=== PATIENT | female | born 1945 | race Caucasian/White ===

== ENCOUNTER 2020-08-18 12:18 | Emergency (ER) | payer MEDICARE, SELFPAY ==
[2020-08-18 12:29] VITALS: BP 114/70; PULSE 69; RESP 16; TEMP 36.6; O2SAT 100
--- NOTE | 2020-08-18 12:43 | ED.GENADULT ---
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 Patient unsure when her last tetanus shot was. Patient states she is on Eliquis and was having a hard time getting the bleeding to stop which is why she showed up here today. Patient did attempt to Steri-Strip it but states it continued to bleed. Related Data Allergies Allergy/AdvReac Type Severity Reaction Status Date / Time erythromycin base AdvReac Mild Nausea Verified 08/18/20 12:42 Sulfa (Sulfonamide AdvReac Mild Nausea Verified 08/18/20 12:41 Antibiotics) Mold (Blue) Cheese Allergy Mild Other Uncoded 08/18/20 12:42 Review of Systems Review of Systems: Narrative: CONSTITUTIONAL: Denies fever, chills, or sweats. EYES: Denies visual changes, redness, or discharge. ENT: Denies rhinorrhea, congestion, sore throat, or otalgia. CARDIOVASCULAR: Denies chest pain, palpitations, or edema. RESPIRATORY: Denies cough or dyspnea. GASTROINTESTINAL: Denies abdominal pain, nausea, vomiting, or diarrhea. GENITOURINARY: Denies dysuria or hematuria. SKIN: Denies rash or itching. Positive wound left lower leg after bumping the raimann machine operator. MUSCULOSKELETAL: Denies back pain, joint pain, or myalgia. NEUROLOGIC: Denies headache, numbness, or weakness. PSYCHIATRIC: Denies anxiety or depression. [facility] Past Medical History Medical History (Updated 08/18/20 @ 12:59 by LINA Rivera) Arthritis Asthma Cardiac disorder Leaky mitral valve Congestive heart failure Hypercholesterolemia Hypertension Scoliosis Tachycardia Surgical History Surgical History (Updated 08/18/20 @ 12:45 by LINA Rivera) H/O: hysterectomy History of appendectomy Social History Social History (Updated 08/18/20 @ 12:45 by LINA Rivera) Smoking status: Current every day smoker Comments At the time of my signature I agree with nursing past medical history, surgical, social, and family history. There is no relevant family history pertinent to the presenting complaint. Exam Narrative: Exam Narrative: GENERAL: Well-appearing, well-nourished, and in no acute distress. HEAD: Normocephalic, atraumatic. EYES: PERRLA and EOMI. ENT: Nares clear, no rhinorrhea or epistaxis. Mucous membranes moist. NECK: Supple. No lymphadenopathy CHEST: Clear to auscultation. No respiratory distress. HEART: Regular rate and rhythm. No murmur heard. Normal peripheral pulses. ABDOMEN: Soft, nontender, nondistended, normal active bowel sounds. EXTREMITIES: Normal range of motion. No edema. SKIN: Warm, dry, no rash. Patient has approximately 4 x 3 cm skin tear noted to the anterior left lower extremity. There is no active bleeding at this time. NEURO: No focal deficits. Alert and oriented x3. Course Vital Signs Vital signs: Vital Signs Temperature 36.6 C 08/18/20 12:29 Pulse Rate 69 08/18/20 12:29 Respiratory Rate 16 08/18/20 12:29 Blood Pressure 114/70 08/18/20 12:29 Pulse Oximetry 100 08/18/20 12:29 Temperature 36.6 C 08/18/20 12:29 Pulse Rate 69 08/18/20 12:29 Respiratory Rate 16 08/18/20 12:29 Blood Pressure 114/70 08/18/20 12:29 Pulse Oximetry 100 08/18/20 12:29 Vital signs reviewed. Procedures Other Procedure Procedure 1: Other Procedure: Wound was cleansed with soap and sterile water. The area was patted dry. The flap of skin was appropriately placed over the skin tear and held in place with a Tegaderm. Patient tolerated procedure well. Discussed with her that we will also update her tetanus shot today as well. Medical Decision Making Differential Diagnosis Differential Diagnosis: Differential oumou
[2020-08-18] MEDS: TETANUS,DIPHTHERIA,AC PERTUSSIS ADULT (0.5 ML) BOOSTRIX IM (12:54)
== END 2020-08-18 13:14 | disposition home or self-care (01) ==
PROVIDERS: Emergency Provider Nurse Practitioner Family
DX: S81.812A Laceration without foreign body, left lower leg, initial encounter (principal); W22.8XXA Striking against or struck by other objects, initial encounter; Z23 Encounter for immunization; F17.200 Nicotine dependence, unspecified, uncomplicated; M19.90 Unspecified osteoarthritis, unspecified site; J45.909 Unspecified asthma, uncomplicated; I11.0 Hypertensive heart disease with heart failure; I50.9 Heart failure, unspecified; E78.00 Pure hypercholesterolemia, unspecified; M41.9 Scoliosis, unspecified; I34.0 Nonrheumatic mitral (valve) insufficiency
CPT/HCPCS: 90471; 90715; 99212; G0463

== ENCOUNTER 2020-12-04 14:35 | Outpatient (CLI) | payer MEDICARE, SELFPAY ==
--- NOTE | ~2020-12-04 | CT_ITS ---
EXAMINATION: CT chest high resolution wo ct DATE: 12/04/2020 15:35 INDICATION: Shortness of breath TECHNIQUE: Computed tomography (CT) of the chest was performed without intravenous contrast. The dose -length product (DLP) was 132.19 mGy-cm. Automated exposure control and iterative reconstruction tech nique were employed. COMPARISON: None FINDINGS: There is mild emphysema. There are scattered nodules of the lungs which measure up to 4 mm. There is bronchiectasis with some atelectasis and scarring of the right lower lobe. There is no pleu ral effusion or pneumothorax. No pathologically enlarged thoracic lymph nodes are identified. Cardiom egaly is noted. There are bilateral breast implants with rupture of the right implant. Punctate calci fications in an otherwise normal spleen likely represent healed granulomatous disease. There is mild thoracic spondylosis. IMPRESSION: 1. Right lower lobe findings likely reflecting prior infection. 2. Mild emphysema. Reviewed, dictated and finalized at location A. OR NET APPLICATION DEVELOPER
== END 2020-12-04 14:36 | disposition home or self-care (01) ==
DX: R06.02 Shortness of breath (principal); J43.9 Emphysema, unspecified; R91.8 Other nonspecific abnormal finding of lung field
CPT/HCPCS: 71250

== ENCOUNTER 2021-10-25 11:49 | Emergency (ER) | payer MEDICARE, SELFPAY ==
--- NOTE | ~2021-10-25 | XR_ITS ---
EXAMINATION: XR shoulder RT min 2V INDICATION: Right shoulder pain TECHNIQUE: Four views of the right shoulder are submitted. COMPARISON: None FINDINGS: Normal alignment. No fracture. Glenohumeral and acromioclavicular joint spaces are normal. Soft tissues are unremarkable. IMPRESSION: 1. No acute osseous abnormality. Reviewed, dictated and finalized at location A. ER STEWARD
--- NOTE | ~2021-10-25 | CT_ITS ---
EXAMINATION: CT facial bones wo con DATE: 10/25/2021 12:50 INDICATION: Facial injury and pain TECHNIQUE: Computed tomography (CT) of the facial bones and maxillofacial region was performed withou t intravenous contrast. The dose-length product (DLP) was 306.57 mGy-cm. Automated exposure control a nd iterative reconstruction technique were employed. COMPARISON: None. FINDINGS: No facial fracture is identified. There is left nasal soft tissue swelling.. The paranasal sinuses are clear. There is a small left mastoid effusion. There is severe cervical spondylosis. [place]o ges in the globes are likely from ocular lens surgery. IMPRESSION: 1. Left nasal soft tissue swelling without acute osseous abnormality identified. Reviewed, dictated and finalized at location A. SPA MANAGER IMPRESSION: 1. Left nasal soft tissue swelling without acute osseous abnormality identified .
--- NOTE | ~2021-10-25 | CT_ITS ---
EXAMINATION: CT brain wo con INDICATION: Head injury COMPARISON: None TECHNIQUE: Standard unenhanced head CT. The dose-length product (DLP) was 681.00 mGy-cm. The mA was a djusted according to patient size. Iterative reconstruction technique was employed. FINDINGS: There is no acute intraparenchymal hemorrhage. There is a 12 mm partially calcified, extra- axial right parafalcine mass adjacent to the right frontal lobe. No evidence of acute infarction. The re is mild periventricular and subcortical hypodensity probably related to small vessel ischemic dise ase. There is mild prominence of the sulci and ventricles related to cerebral atrophy. Intracranial c alcified cerebral atherosclerosis is noted. There are no extra-axial collections. There is no mass ef fect or midline shift. Changes in the globes are likely from ocular lens surgery. The visualized sinu ses and mastoid air cells are well aerated. IMPRESSION: 1. No acute intracranial abnormality. 2. Age related findings. 3. Parafalcine extra-axial mass adjacent to the right frontal lobe, likely a meningioma. Reviewed, dictated and finalized at location A. IL BAKERY MANAGER IMPRESSION: 1. No acute intracranial abnormality. 2. Age related findings. 3. Parafalcine extra-axial mass adjacent to the right frontal lobe, likely a me ningioma.
--- NOTE | ~2021-10-25 | XR_ITS ---
EXAMINATION: XR knee LT 3V DATE: 10/25/2021 12:45 INDICATION: Left knee pain TECHNIQUE: Three views of the left knee were obtained. COMPARISON: None. FINDINGS: Alignment is normal. No fracture or osteochondral lesion. Joint spaces are normal with no e rosions. No joint effusion/synovitis. There is anterior soft tissue swelling of the knee. IMPRESSION: 1. Soft tissue swelling without acute osseous abnormality. Reviewed, dictated and finalized at location A. BUSINESS SYSTEMS ANALYST
[2021-10-25 12:05] VITALS: BP 109/59; PULSE 78; RESP 16; TEMP 36.1; O2SAT 99
--- NOTE | 2021-10-25 13:13 | ED.FALL ---
HPI - Fall General Chief Complaint: Fall Stated Complaint: fall/nose injury/shoulder injury Time Seen by Provider: 10/25/21 13:03 Source: patient and RN notes reviewed Mode of arrival: ambulatory Limitations: no limitations History of Present Illness HPI Narrative: Patient tripped at home and fell 3 days ago, complaining of facial bruises without pain, right shoulder pain and left knee pain. No loss of consciousness, denies other injuries. Related Data Allergies Allergy/AdvReac Type Severity Reaction Status Date / Time erythromycin base AdvReac Mild Nausea Verified 10/25/21 12:13 Sulfa (Sulfonamide AdvReac Mild Nausea Verified 10/25/21 12:13 Antibiotics) Mold (Blue) Cheese Allergy Mild Other Uncoded 10/25/21 12:13 Review of Systems Review of Systems: CONSTITUTIONAL: Denies fever, chills, or sweats. EYES: Denies visual changes, redness, or discharge. ENT: Denies rhinorrhea, congestion, sore throat, or otalgia. CARDIOVASCULAR: Denies chest pain, palpitations, or edema. RESPIRATORY: Denies cough or dyspnea. GASTROINTESTINAL: Denies abdominal pain, nausea, vomiting, or diarrhea. GENITOURINARY: Denies dysuria or hematuria. SKIN: Denies rash or itching. MUSCULOSKELETAL: Denies back pain, joint pain, or myalgia. NEUROLOGIC: Denies headache, numbness, or weakness. PSYCHIATRIC: Denies anxiety or depression. [facility] Past Medical History Medical History Arthritis Asthma Cardiac disorder Leaky mitral valve Congestive heart failure Hypercholesterolemia Hypertension Scoliosis Tachycardia Surgical History Surgical History H/O: hysterectomy History of appendectomy Social History Social History Smoking status: Current every day smoker Gender identity (if verbalized by the patient): Female Exam Narrative: General appearance: Well-developed, well-nourished Skin: Bruises at the nasal bridge and lower eyelids Head: Normocephalic, nontraumatic Eyes: Clear conjunctiva ENT: Oropharynx normal, ears normal, nose normal Neck: Supple, nontender Chest and respiratory: Airway patent, no respiratory distress, no accessory muscle use Heart: Regular rate/rhythm Abdomen: Soft, nontender, no organomegaly, quiet bowel sounds Vascular: Normal peripheral pulses, normal capillary refill. Musculoskeletal: Mild diffuse tenderness right shoulder, limited range of motion, mild diffuse tenderness left knee, slight limited range of motion Neurologic: Alert and oriented ?3, STAFFING OPERATIONS MANAGER is normal as tested, no gross motor deficit Course Course Emergency Course: Stable Vital Signs Vital signs: Vital Signs Temperature 36.1 C L 10/25/21 12:05 Pulse Rate 78 10/25/21 12:05 Respiratory Rate 16 10/25/21 12:05 Blood Pressure 109/59 L 10/25/21 12:05 Pulse Oximetry 99 10/25/21 12:05 Temperature 36.1 C L 10/25/21 12:05 Pulse Rate 78 10/25/21 12:05 Respiratory Rate 16 10/25/21 12:05 Blood Pressure 109/59 L 10/25/21 12:05 Pulse Oximetry 99 10/25/21 12:05 MDM - Fall Imaging Data Radiologist's impression: Impressions Head CT 10/25/21 12:56 IMPRESSION: 1. No acute intracranial abnormality. 2. Age related findings. 3. Parafalcine extra-axial mass adjacent to the right frontal lobe, likely a meningioma. Knee X-Ray 10/25/21 13:01 IMPRESSION: 1. Soft tissue swelling without acute osseous abnormality. Shoulder X-Ray 10/25/21 13:04 IMPRESSION: 1. No acute osseous abnormality. Critical Care Time Critical Care Time Critical Care Time: No Discharge Plan D
== END 2021-10-25 14:39 | disposition home or self-care (01) ==
PROVIDERS: Emergency Provider Emergency Medicine
DX: S00.33XA Contusion of nose, initial encounter (principal); S80.12XA Contusion of left lower leg, initial encounter; S40.021A Contusion of right upper arm, initial encounter; J45.909 Unspecified asthma, uncomplicated; M19.90 Unspecified osteoarthritis, unspecified site; I38 Endocarditis, valve unspecified; I50.9 Heart failure, unspecified; I11.0 Hypertensive heart disease with heart failure; E78.00 Pure hypercholesterolemia, unspecified; F17.200 Nicotine dependence, unspecified, uncomplicated; G93.9 Disorder of brain, unspecified; W01.0XXA Fall on same level from slipping, tripping and stumbling without subsequent striking against object, initial encounter
CPT/HCPCS: 70450; 70486; 73030; 73562; 99284

== ENCOUNTER 2021-11-10 14:31 | Emergency (ER) | payer MEDICARE, SELFPAY ==
[2021-11-10 14:34] VITALS: BP 141/72; PULSE 83; RESP 18; TEMP 36.8; O2SAT 95
[2021-11-10 16:03] VITALS: BP 139/64; PULSE 90; O2SAT 94
--- NOTE | 2021-11-10 17:26 | PC.NURSE ---
pt. states she is going to leave
== END 2021-11-11 03:11 | disposition left against medical advice (07) ==
LOC: ANHED 17:30
DX: Z53.21 Procedure and treatment not carried out due to patient leaving prior to being seen by health care provider (principal)
CPT/HCPCS: 99199

== ENCOUNTER → 2021-11-13 00:19 | Outpatient (CLI) | payer MEDICARE, SELFPAY ==
[2021-11-14 16:52] LABS: SARS-CoV-2 RNA PCR Negative
== END ==
PROVIDERS: Visit Provider Internal Medicine Gastroenterology
DX: Z01.812 Encounter for preprocedural laboratory examination (principal); Z20.822 Contact with and (suspected) exposure to COVID-19
CPT/HCPCS: C9803; U0003; U0005

== ENCOUNTER 2021-11-14 06:42 | Inpatient (IN) | payer MEDICARE, SELFPAY ==
[2021-11-14] VITALS (36 sets, daily range): BP systolic 102–151; BP diastolic 43–102; PULSE 80–101; RESP 12–29; TEMP 36.3–36.8; O2SAT 89–100
--- NOTE | ~2021-11-14 | XR_ITS ---
XR chest 1V portable DATE: 11/17/2021 06:14 INDICATION: Pneumonia. Shortness of breath. TECHNIQUE: Portable AP chest on 11/2021 at 0531 hours COMPARISON: 12/03/2021 portable AP chest at 0528 hours FINDINGS: Again noted are severe diffuse bilateral pulmonary infiltrates, mildly increased since 12/03. Differential diagnosis for the pulmonary infiltrates includes extensive pulmonary edema and/or pneumonia Prominence of the minor fissure suggesting subpleural edema. Shant B-lines suggest pulmonary interst itial edema. There is minimal if any pleural effusion. No pneumothorax. Diffuse osteopenia. Levoscoliosis of the thoracic spine. IMPRESSION: Extensive bilateral pulmonary infiltrates, mildly increased since 11/16/2021 Reviewed, dictated and finalized at location A. TENANT/DEPUTY
--- NOTE | ~2021-11-14 | CT_ITS ---
EXAMINATION: CTA chest PE protocol DATE: 11/15/2021 17:23 INDICATION: Hypoxic respiratory failure. TECHNIQUE: Computed tomography angiography (CTA) of the chest was performed with 100 mL Omnipaque-350 intravenous contrast timed to evaluate the pulmonary arteries. Coronal maximum intensity projection 3D-reconstructions were created by the technologist. Automated exposure control and iterative reconst ruction technique were employed. The dose-length product was 239.08 mGy-cm. COMPARISON: Chest CT 12/04/2020, chest single view 11/15/2021 FINDINGS: There are groundglass opacities, airspace opacities, and crazy paving involving all lobes. There are small pleural effusions. Calcified left lung nodules and calcified left hilar and mediastin al lymph nodes are consistent with old granulomatous disease. The heart size is normal. No pericardia l effusion. There is mild pectus excavatum. There is no pulmonary embolus. There are bilateral breast implants. Calcifications in the spleen are consistent with old granulomatous disease. There is thora cic dextroscoliosis and mild spondylosis. IMPRESSION: 1. No pulmonary embolus. 2. Diffuse lung disease, consistent with pulmonary edema versus pneumonia. 3. Small pleural effusions. Reviewed, dictated and finalized at location A. CRITIC
--- NOTE | ~2021-11-14 | XR_ITS ---
EXAMINATION: XR chest 1V portable DATE: 11/14/2021 07:39 INDICATION: Cough. TECHNIQUE: A single frontal view of the chest was obtained. COMPARISON: Chest 2 views 11/30/18, chest CT 12/04/2020 FINDINGS: The patient is rotated to her right. There are airspace and interstitial opacities in all l chio zones bilaterally with relative sparing of left lung apex. No pleural effusion or pneumothorax. T he heart size is normal. IMPRESSION: 1. Diffuse lung disease, consistent with pneumonia versus pulmonary edema. Reviewed, dictated and finalized at location A. PRESIDENT OF CUSTOMER SERVICE
--- NOTE | ~2021-11-14 | XR_ITS ---
EXAMINATION: XR chest 1V portable EXAM DATE: 11/15/2021 11:47 INDICATION: Shortness of breath. TECHNIQUE: Portable AP frontal chest x-ray was obtained. Comparison is made to prior examination from 11/14/2021. FINDINGS: Extensive bilateral airspace disease, pneumonia and/or edema. Mild cardiomegaly. No pneumot horax. Moderate scoliosis. There are no pleural effusions. IMPRESSION: Extensive bilateral airspace disease unchanged. Reviewed, dictated and finalized at location A. O CALLER
--- NOTE | ~2021-11-14 | XR_ITS ---
EXAMINATION: XR chest ET placement DATE: 11/19/2021 13:07 INDICATION: Intubation. TECHNIQUE: A single frontal view of the chest was obtained on 2 radiographs. COMPARISON: Chest single view 11/18/2021, chest CT 11/15/2021 FINDINGS: There are airspace and interstitial opacities throughout the lungs bilaterally. No pleural effusion or pneumothorax. The heart size is normal. The endotracheal tube tip is 1.9 cm above the car daniela. A left upper extremity peripherally inserted central venous catheter (PICC) is seen with tip in the superior vena cava. IMPRESSION: 1. Stable diffuse lung disease, consistent with pulmonary edema versus pneumonia. Reviewed, dictated and finalized at location A. CTOR SERVICE IMPRESSION: 1. Stable diffuse lung disease, consistent with pulmonary edema versus pneumoni a.
--- NOTE | ~2021-11-14 | XR_ITS ---
XR chest 1V portable DATE: 11/16/2021 06:23 INDICATION: Shortness of breath TECHNIQUE: Portable upright AP chest on 12/03/2021 at 0528 hours COMPARISON: 11/15/2021 CT pulmonary scan 11/15/2021 portable AP chest FINDINGS: Persistent relatively unchanged extensive bilateral patchy pulmonary infiltrates throughout both lungs, relatively sparing only the left apex. Heart size is within normal limits. Bilateral Shant B-lines are noted suggesting pulmonary interstit ial edema. Small pleural effusions are demonstrated to better advantage on the 11/15/2021 CT thorax exa mination. There is prominence of the minor fissure. Thoracic aortic calcification. Diffuse osteopenia. IMPRESSION: Persistent extensive patchy bilateral pulmonary infiltrates and suggestion of pulmonary i nterstitial and subpleural edema. Bilateral pneumonia and congestive changes are suspected Little interval change since 11/15/2021 Reviewed, dictated and finalized at location A. UETTER OPERATOR IMPRESSION: Persistent extensive patchy bilateral pulmonary infiltrates and sug gestion of pulmonary interstitial and subpleural edema. Bilateral pneumonia and congestive changes are suspected Little interval change since 11/15/2021
--- NOTE | ~2021-11-14 | XR_ITS ---
XR chest 1V portable DATE: 11/18/2021 06:15 INDICATION: Pneumonia TECHNIQUE: Portable AP chest on 11/18/2021 at 0540 hours COMPARISON: Portable AP chest on 11/17/2021 at 0531 hours FINDINGS: Diffuse severe bilateral pulmonary infiltrates appear relatively stable since 11/2021. Bilateral hyperinflation, suggesting COPD. There is minimal if any pleural effusion. No pneumothorax. Diffuse osteopenia. Levoscoliosis of the thoracic spine. IMPRESSION: Persistent diffuse severe bilateral pulmonary infiltrates Reviewed, dictated and finalized at location A. STIAN MINISTRIES PROFESSOR
--- NOTE | 2021-11-14 07:12 | ECG_ITS ---
Measurements Intervals Watson Rate: 81 P: 74 FL: 225 QRS: 41 QRSD: 92 T: 93 QT: 382 QTc: 446 Interpretive Statements SINUS RHYTHM WITH FIRST DEGREE AV BLOCK CANNOT RULE OUT SEPTAL INFARCT, AGE INDETERMINATE ST-T WAVE ABNORMALITY IN ANTEROLAT/HIGH LAT LEADS- CONSIDER ISCHEMIA BASELINE WANDER- I, III, AVL, V1, V4 ABNORMAL ECG Electronically Signed On 11-14-2021 13:29:00 SCHOOL SECRETARY by Roosevelt Gaytan D.O.
--- NOTE | 2021-11-14 07:43 | ED.SOB ---
HPI - SOB/Dyspnea General Chief Complaint: Shortness of Breath/Dyspnea Stated Complaint: SOB Time Seen by Provider: 11/14/21 07:09 Source: RN notes reviewed History of Present Illness HPI Narrative: Patient presents emergency department from home for shortness of breath. Patient states she has been short of breath since . She states that she had had a spell of coughing and asthma at that time and had come to the emergency department initially she states initially when she had been triaged her pulse ox have been in the upper 80s but she had not been able to get a bed and had not been seen she states she is continued to be short of breath states that she has continued to have shortness of breath with a cough this been nonproductive she denies any fevers or chills abdominal pain nausea or vomiting states she does have a history of asthma as well as CHF. States that she did receive the Covid vaccine and both booster shot patient had called EMS tonight was noted to have an oxygen saturation in the mid 70s Related Data Home Medications Medication Instructions Recorded Confirmed albuterol sulfate 2 puff INHALATION QID PRN 11/03/21 11/14/21 alprazolam 0.25 mg PO DAILY PRN 11/03/21 11/14/21 amiodarone 25 mg PO DAILY 11/03/21 11/14/21 apixaban [Eliquis] 5 mg PO BID 11/03/21 11/14/21 duloxetine 30 mg PO DAILY 11/03/21 11/14/21 fluticasone propionate 2 spray INTRANASAL DAILY 11/03/21 11/14/21 furosemide 20 mg PO DAILY PRN 11/03/21 11/14/21 lisinopril 40 mg PO DAILY 11/03/21 11/14/21 metoprolol succinate 50 mg PO DAILY 11/03/21 11/14/21 nortriptyline 10 mg PO DAILY 11/03/21 11/14/21 tramadol 50 mg PO Q6H PRN 11/03/21 11/14/21 tretinoin 1 applic TOPICAL DAILY 11/03/21 11/14/21 amlodipine 5 mg PO DAILY 11/14/21 11/14/21 benralizumab [Fasenra] See Rx Instructions .ROUTE .COMPLEX 11/14/21 11/14/21 estradiol [Climara] 1 patch TRANSDERMAL WEEKLY 11/14/21 11/14/21 fluticasone propion-salmeterol 2 puff INHALATION BID 11/14/21 11/14/21 [Advair HFA] lidocaine 1 patch TRANSDERMAL DAILY 11/14/21 11/14/21 omeprazole 40 mg PO DAILY 11/14/21 11/14/21 prednisone 50 mg PO DAILY 11/14/21 11/14/21 Allergies Allergy/AdvReac Type Severity Reaction Status Date / Time propofol Allergy Severe Difficulty Verified 11/14/21 06:59 Breathing erythromycin base AdvReac Mild Nausea Verified 11/14/21 06:59 Sulfa (Sulfonamide AdvReac Mild Nausea Verified 11/14/21 06:59 Antibiotics) Mold (Blue) Cheese Allergy Mild Other Uncoded 11/14/21 06:59 Review of Systems Review of Systems: Gen.: Denies fevers or chills ENT: Denies congestion Respiratory: Denies shortness of breath or cough CV: Denies chest pain or palpitations GI: Denies abdominal pain nausea, emesis or diarrhea Musculoskeletal: Denies back pain or muscle pain Neuro: Denies numbness, tingling, weakness or focal weakness Skin: Denies rash Except as documented, all other systems reviewed and negative PMFSH Past Medical History Medical History Arthritis Asthma Cardiac disorder Leaky mitral valve Congestive heart failure Hypercholesterolemia Hypertension Scoliosis Tachycardia Surgical History Surgical History H/O: hysterectomy History of appendectomy Social History Social History Smoking packs per day: 0.5 Smoking cigarettes per day: 10.0 Years smoked: 27 Smoking pack-years: 13.50 Smoking status: Former smoker Tobacco type: cigarettes Alcohol intake: current Drinks per week: 2 Gender identity (if verbalized by the patient): Female Spiritual care concerns: No Exam Narrative: APPEARANCE: No acute distress, nontoxic, resting in bed EYES: EOMI HEENT: Normocephalic, atraumatic, OMM RESPIRATORY: Mild respiratory distress crackles throughout the bilateral lung connelly decreased breath sounds in the
[2021-11-14] MEDS: ALBUTEROL SULFATE NEB 2.5 MG/0.5 ML INH 5 MG INHALATION ×2 (08:13→15:11)
[2021-11-14] MEDS: IPRATROPIUM BR 0.02% INH SOLN 0.5 MG/2.5 ML VIAL INHALATION (08:13)
[2021-11-14 08:28] LABS: Alveolar/Arterial O2 Gradient 615.1 mmHg; Base Excess ABG -1.2 mEq/l (+/-2.0); Fractional Inspired Oxygen 100 %; HCO3 ABG 22.3 mEq/l (22.0-26.0); Oxygen Content ABG 12.3 %vol (16.0-22.0); Oxygen Saturation ABG 93.9 % (95.0-100.0); Oxyhemoglobin 90.8 % THb (90.0-100.0); PCO2 ABG 32.8 mmHg (35.0-45.0); PO2 ABG 65.1 mmHg (80.0-100.0); PO2 FiO2 Ratio Arterial Blood 0.65 %; Total Hemoglobin 9.6 g/dL (12.0-18.0); pH ABG 7.451 (7.350-7.450)
[2021-11-14 08:29] LABS: Device NON-REBREATHER MASK; Site Drawn LEFT BRACHIAL
[2021-11-14 08:33] LABS: Basophils Percent Auto 0.2 % (0.2-1.2); Hematocrit 28.4 % (37.0-47.0); Hemoglobin 8.8 g/dL (12.0-15.0); Immature Granulocyte Absolute 0.13 K/mm3 (0.00-0.031); Immature Granulocyte Percent A 0.7 % (0-0.5); Lymphocytes Absolute Auto 0.63 K/mm3 (0.9-3.2); Lymphocytes Percent Auto 3.3 % (18.3-44.2); Mean Corpuscular Volume 87.1 fl (80-100); Mean Platelet Volume 9.1 fl (7.4-10.4); Monocytes Absolute Auto 1.7 K/mm3 (0.1-0.6); Monocytes Percent Auto 8.6 % (2.6-8.5); Neutrophils Absolute Auto 16.9 K/mm3 (1.3-6.7); Neutrophils Percent Auto 87.2 % (45.5-73.1); Platelet Count Result 526 k/mm3 (150-375); Red Blood Count 3.26 M/mm3 (4.2-5.4); Red Cell Distribution Width 27.8 % (11.5-14.5); White Blood Count 19.4 K/mm3 (4.5-10.0)
[2021-11-14 08:41] LABS: Lactic Acid Reflex 1.1 mmol/L (0.7-2.1)
[2021-11-14 08:42] LABS: Alanine Aminotransferase 26 U/L (4-35); Albumin Level 3.5 g/dL (3.5-5.1); Alkaline Phosphatase 82 U/L (38-126); Anion Gap 11 mmol/L (8-16); Aspartate Amino Transferase 30 U/L (14-36); Bilirubin,Total 0.4 mg/dL (0.2-1.3); Blood Urea Nitrogen 30 mg/dL (7-17); Calcium 9.3 mg/dL (8.4-10.2); Carbon Dioxide 23 mmol/L (22-30); Chloride 102 mmol/L (98-107); Estimated CRCL calculation 30 ml/min; Estimated Glomerular Filt Rate 48; Glucose 104 mg/dL (65-110); Potassium 3.4 mmol/L (3.4-5.0); Sodium 136 mmol/L (137-145)
[2021-11-14 08:54] LABS: NT Pro B Type Natriuretic Pept 3240 pg/mL (5-100); Troponin I 0.012 ng/mL (0.000-0.034)
[2021-11-14 09:09] LABS: INR 1.4; Prothrombin Time 16.5 Seconds (11.1-14.7)
[2021-11-14 09:10] LABS: Partial Thromboplastin Time 30.4 SECONDS (22.3-36.8)
[2021-11-14] MEDS: FUROSEMIDE INJ 40 MG/4 ML VIAL 20 MG IV PUSH (09:55)
--- NOTE | 2021-11-14 13:28 | ADMGEN ---
This patient, Callie Renee, was admitted to IMU Room 201-01 at 1225. Patient/family oriented to hospital policies and general routines including ID bracelet, bed and alarms, visiting hours, pain management, procedures, bathroom and other care routines, personal items, smoking policy, room service/diet, and visiting hours. Information on how to activate the Rapid Response Team has been discussed. Patient/Family are encouraged to report perceived risks to care and to ask questions if they do not understand what they are told or what they should do.
[2021-11-14 13:47] LABS: Troponin I 0.012 ng/mL (0.000-0.034)
[2021-11-14 15:25] LABS: Troponin I < 0.012 ng/mL (0.000-0.034)
--- NOTE | 2021-11-14 16:06 | PM.CNCAR ---
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 Her left ventricular systolic function has recovered by echo following that event and as recently as September was found to still be normal. She is known not to have coronary artery disease. She has been reporting gradual worsening dyspnea now for several months she presents with severe hypoxemia and diffuse who on disease in both lungs unusually sparing the left apex. This does not look like pulmonary edema to me. The noninvasive workup it was just completed at [place] when these symptoms were beginning also did not suggest a reason to develop pulmonary edema. She does have some mitral regurgitation on echo but it is nearly inaudible on physical exam. I am concerned about the development of relatively severe lung disease. She is triple vaccinated against coronavirus making this unlikely but not impossible. She has been swabbed for that. I suppose amiodarone lung toxicity enters the differential diagnosis here but in my experience that is very unusual at a dosage of 200 mg per day. Since she has not had any recent AFib I would discontinue amiodarone at this time until have a more clear picture of the underlying pulmonary process here. George Espitia MD [facility] History of Present Illness History of Present Illness Consult date/time: 11/14/21 16:06 Consult reason: congestive heart failure Reason For Visit: acute respiratory failure with hypoxia,community c Narrative: This is a very pleasant 76-year-old lady that I am seeing at the request of the hospitalist/ER physician's this evening because of concern about the possibility of congestive heart failure. She came into the hospital emergency room today reporting symptoms of shortness of breath that were becoming severe and she was found to have a very low oxygen saturation and I believe was brought in to the hospital by ambulance. She was placed on high-flow oxygen supplementation and evaluated in the emergency room for the time being her oxygen saturations are acceptable but she is requiring 14 L of high-flow oxygen per nasal cannula to accomplish this. She is not reporting any chest pain pressure or heaviness she denies any symptoms of orthopnea PND or accumulating edema. She has a cardiac history and is followed by Dr. Duran in the cardiology department at [facility] at [place]. She has a history of stress-induced takotsubo cardiomyopathy in April of 2019. At that time she underwent catheterization at that hospital demonstrating no evidence of any significant coronary disease she had by echo significantly depressed LV systolic function which with medical therapy did recover. During the same hospitalization she had atrial fibrillation which was treated with amiodarone and ultimately converted to sinus rhythm. She has been maintained on amiodarone since that time and currently is taking 200 mg daily. The remainder of her cardiac regimen includes amlodipine, apixaban, 20 mg of furosemide, high-dose lisinopril and 50 mg of Toprol XL. According to the notes from her physicians at [place] she has been reporting symptoms of shortness of breath with activity that have been becoming more problematic over the last 3 months or so. She did have a chest x-ray done in [facility] where of which I did see the report on [employer] from my office that was interpreted as normal. Today's chest x-ray in the emergency room shows extensive infiltrate/consolidation in the right lung as well as in the left lung sparing the apex. Cardiac silhouette looks normal. Given these symptoms of worsening dyspnea her assembly inspector had her undergo an echocardiogram at [place] in September with September which demonstrated nor mole left ventricular systolic function with an ejection fraction of 62%. She does have mild mitral valve regurgitation apparently evidence of mild mitral va
--- NOTE | 2021-11-14 17:17 | PM.IMHP ---
H&P: HPI History of Present Illness Date/Time: 11/14/21 17:17 Chief Complaint: Shortness of breath Narrative: Patient presents emergency department from home for shortness of breath. Patient states she has been short of breath since . She is seen at [facility] was given albuterol nebulization which improved her symptoms however last night she got spell of coughing and shortness of breath started since then. She denies any fever or chills or nausea vomiting abdominal pain. She denies any exposure to any COVID patient. She did travel to [place] last week. She has been fully vaccinated with COVID due to shortness of breath she called EMS last night and she was noted to have oxygen saturation in mid 70s and was brought to the ER for evaluation. She is found to have bilateral diffuse pneumonia and is admitted for further evaluation and treatment. She has been on 15 L oxygen with non-rebreather on top of that. Review of Systems Review of Systems: - CONSTITUTIONAL: Denies weight loss, fever and chills. - HEENT: Denies changes in vision and hearing - RESPIRATORY: Reports SOB and cough. - CV: Denies palpitations and CP. - GI: Denies abdominal pain, nausea, vomiting and diarrhea. - : Denies dysuria and urinary frequency. - MSK: Denies myalgia and joint pain. - SKIN: Denies rash and pruritus. - NEUROLOGICAL: Denies headache and syncope. - PSYCHIATRIC: Denies recent changes in mood. Denies anxiety and depression. All systems reviewed & are unremarkable except as noted in HPI and below Constitutional: Constitutional: Reports fatigue and Reports weakness Neurologic: Reports weakness Endocrine: Endocrine: Reports fatigue [facility] Past Medical History Medical History (Updated 11/14/21 @ 17:54 by Channing Gr MD) Arthritis Asthma Cardiac disorder Leaky mitral valve Congestive heart failure Hypercholesterolemia Hypertension Scoliosis Tachycardia Surgical History Surgical History H/O: hysterectomy History of appendectomy Social History Social History Smoking packs per day: 0.5 Smoking cigarettes per day: 10.0 Years smoked: 27 Smoking pack-years: 13.50 Smoking status: Former smoker Tobacco type: cigarettes Alcohol intake: current Drinks per week: 2 Gender identity (if verbalized by the patient): Female Spiritual care concerns: No Meds Home Medications and Allergies Home Medications Medication Instructions Recorded Confirmed Type albuterol sulfate 2 puff INHALATION QID PRN 11/03/21 11/14/21 History alprazolam 0.25 mg PO DAILY PRN 11/03/21 11/14/21 History amiodarone 25 mg PO DAILY 11/03/21 11/14/21 History apixaban [Eliquis] 5 mg PO BID 11/03/21 11/14/21 History duloxetine 30 mg PO DAILY 11/03/21 11/14/21 History fluticasone propionate 2 spray INTRANASAL DAILY 11/03/21 11/14/21 History furosemide 20 mg PO DAILY PRN 11/03/21 11/14/21 History lisinopril 40 mg PO DAILY 11/03/21 11/14/21 History metoprolol succinate 50 mg PO DAILY 11/03/21 11/14/21 History nortriptyline 10 mg PO DAILY 11/03/21 11/14/21 History tramadol 50 mg PO Q6H PRN 11/03/21 11/14/21 History tretinoin 1 applic TOPICAL DAILY 11/03/21 11/14/21 History amlodipine 5 mg PO DAILY 11/14/21 11/14/21 History benralizumab [Fasenra] See Rx Instructions .ROUTE .COMPLEX 11/14/21 11/14/21 History estradiol [Climara] 1 patch TRANSDERMAL WEEKLY 11/14/21 11/14/21 History fluticasone propion-salmeterol 2 puff INHALATION BID 11/14/21 11/14/21 History [Advair HFA] lidocaine 1 patch TRANSDERMAL DAILY 11/14/21 11/14/21 History omeprazole 40 mg PO DAILY 11/14/21 11/14/21 History prednisone 50 mg PO DAILY 11/14/21 11/14/21 History Allergies Allergy/AdvReac Type Severity Reaction Status Date / Time propofol Allergy Severe Difficulty Verified 11/14/21 06:59 Breathing erythromycin base AdvReac Mild Nausea Veri
[2021-11-14] MEDS: ONDANSETRON INJ 4 MG/2 ML VIAL IV PUSH (18:59)
[2021-11-14] MEDS: LEVALBUTEROL NEB 1.25 MG/3 ML 0.63 MG INHALATION ×2 (19:25→19:26)
[2021-11-14] MEDS: PANTOPRAZOLE 40 MG TABLET PO (21:18)
[2021-11-14] MEDS: APIXABAN 5 MG TABLET PO (21:18)
[2021-11-14] MEDS: NORTRIPTYLINE HCL 10 MG CAPSULE PO (22:29)
[2021-11-15] VITALS (17 sets, daily range): BP systolic 108–122; BP diastolic 55–64; PULSE 65–99; RESP 19–36; TEMP 36.2–37; O2SAT 90–100
[2021-11-15] MEDS: LEVALBUTEROL NEB 1.25 MG/3 ML 0.63 MG INHALATION ×2 (01:53→20:40)
[2021-11-15 04:55] LABS: Basophils Percent Auto 0.1 % (0.2-1.2); Hematocrit 31.9 % (37.0-47.0); Hemoglobin 9.7 g/dL (12.0-15.0); Immature Granulocyte Absolute 0.18 K/mm3 (0.00-0.031); Immature Granulocyte Percent A 0.9 % (0-0.5); Lymphocytes Absolute Auto 0.51 K/mm3 (0.9-3.2); Lymphocytes Percent Auto 2.5 % (18.3-44.2); Mean Corpuscular HGB Conc 30.4 g/dl (32-36); Mean Corpuscular Hemoglobin 26.4 pg (26-34); Mean Corpuscular Volume 86.7 fl (80-100); Mean Platelet Volume 9.1 fl (7.4-10.4); Monocytes Absolute Auto 1.2 K/mm3 (0.1-0.6); Monocytes Percent Auto 5.9 % (2.6-8.5); Neutrophils Absolute Auto 18.5 K/mm3 (1.3-6.7); Neutrophils Percent Auto 90.6 % (45.5-73.1); Platelet Count Result 550 k/mm3 (150-375); Red Blood Count 3.68 M/mm3 (4.2-5.4); Red Cell Distribution Width 27.3 % (11.5-14.5); White Blood Count 20.5 K/mm3 (4.5-10.0)
[2021-11-15 05:11] LABS: Anion Gap 7 mmol/L (8-16); Blood Urea Nitrogen 20 mg/dL (7-17); Carbon Dioxide 27 mmol/L (22-30); Chloride 101 mmol/L (98-107); Estimated CRCL calculation 37 ml/min; Estimated Glomerular Filt Rate > 60; Glucose 107 mg/dL (65-110); Potassium 3.8 mmol/L (3.4-5.0); Sodium 135 mmol/L (137-145)
[2021-11-15 05:29] LABS: Anisocytosis 1+ (NORMAL); Hypochromasia 1+ (NORMAL); Platelet Estimate Adequate (Adequate); Poikilocytosis 1+ (NORMAL)
--- NOTE | 2021-11-15 08:02 | PM.PNCARD ---
Progress Note: A&P Additional Plan 76-year-old lady who has been reporting gradual shortness of breath for about 3-4 months. It has become severe with hypoxemia requiring high-flow oxygen now on a BiPAP device. Cardiac history as I mentioned in my note is significant for an episode of takotsubo stress cardiomyopathy in 2019 from which she completely recovered with normalization in her LV function. At the time of that event she also had an episode of atrial fibrillation and had been maintained on low-dose amiodarone by her physicians at [facility]. Recent echocardiography has demonstrated persistent normal LV function and a mild amount of MR. Despite this she has progressed to significant hypoxemia and has bilateral lung disease that was not evident on a chest x-ray earlier this year. Await the results of the chest CT that apparently will be done this morning. At this time no other specific cardiac recommendations George Espitia MD [facility] Subjective Date/time seen: Date of service: 11/15/21 08:03 Interval history: Follow-up visit in this 76-year-old lady with: Subacute onset of shortness of breath with extensive pulmonary congestion on chest x-ray. This process has been going on for several months according to review of her medical records as I mentioned in my consult note. She has been reporting these worsening dyspnea for about 4 months. She does not have any other clinical stigmata of congestive heart failure nor any evidence of significant valve disease that would cause this on recent evaluation by her ironworker apprentice at [facility]. There is some possibility of amiodarone lung toxicity I suppose and so that agent has been put on hold for now. CT of the chest is scheduled for this morning which I believe is going to be very useful. This is not the clinical scenario of pulmonary embolization and the patient has been systemically anticoagulated chronically making this diagnosis highly unlikely. So far she is still maintaining sinus rhythm and offers no cardiovascular complaints this morning. She is on BiPAP. Asking to use the restroom Exam Const: General: comfortable and no acute distress Other: Pleasant elderly lady with BiPAP in place no cardiovascular complaints HENMT: Mouth: Yes moist mucous membranes Eyes: Sclera: sclerae normal Neck: Neck: supple and no JVD Resp: Other: Coarse breath sounds throughout both lung connelly Cardio: Rate: regular rate Rhythm: regular rhythm Other: Difficult exam with loud breath sounds no obvious murmur or gallop GI: GI Palp: Yes Soft to palpation Auscultation: normal bowel sounds Skin: General skin exam: normal color Neuro: Cognition (Neuro): normal cognition Extrem: General: normal to inspection Objective Data Vital Signs Vital Signs: Vital Signs - 24 hr 11/14/21 08:05 11/14/21 08:16 11/14/21 08:22 Temperature Pulse Rate 82 81 82 Respiratory Rate 23 H 26 H Blood Pressure Pulse Oximetry 95 11/14/21 08:33 11/14/21 08:39 11/14/21 08:45 Temperature Pulse Rate 85 89 89 Respiratory Rate 27 H 28 H 23 H Blood Pressure Pulse Oximetry 11/14/21 08:47 11/14/21 09:00 11/14/21 09:01 Temperature Pulse Rate 93 93 Respiratory Rate 29 H 20 Blood Pressure 151/102 H Pulse Oximetry 96 100 99 11/14/21 09:15 11/14/21 09:27 11/14/21 09:30 Temperature Pulse Rate 84 85 Respiratory Rate 25 H 22 H Blood Pressure Pulse Oximetry 95 93 94 11/14/21 09:31 11/14/21 09:45 11/14/21 10:12 Temperature Pulse Rate 86 87 Respiratory Rate 21 H 22 H Blood Pressure 130/69 Pulse Oximetry 89 L 91 11/14/21 10:15 11/14/21 10:45 11/14/21 12:15 Temperature Pulse Rate 84 82 Respiratory Rate 23 H 22 H Blood Pressure 121/77 Pulse Oximetry 92 92 95 11/14/21 13:08 11/14/21 14:00 11/14/21 15:11 Temperature 36.5 C Pulse Rate 81 92 84 Respiratory Rate 12 21 H Blood Pressure 116/52 L Pulse Oximetry 94 11/14/21 15:23 11/14/21 1
[2021-11-15] MEDS: amLODIPine BESYLATE 5 MG TABLET PO (10:06)
[2021-11-15] MEDS: APIXABAN 5 MG TABLET PO ×2 (10:07→20:18)
[2021-11-15] MEDS: PANTOPRAZOLE 40 MG TABLET PO ×2 (10:08→20:18)
[2021-11-15] MEDS: DULoxetine HCL 30 MG CAPSULE.DR PO (10:08)
[2021-11-15] MEDS: METOPROLOL SUCCINATE EXT REL 50 MG TABCR PO (10:08)
[2021-11-15] MEDS: lisinopriL 20 MG TABLET 40 MG PO (10:09)
[2021-11-15] MEDS: LIDOCAINE 5% PATCH 1 PATCH TRANSDERM (10:10)
--- NOTE | 2021-11-15 11:44 | PM.IMPN ---
Progress Note: A&P Assessment and Plan (1) Acute respiratory failure with hypoxia: Code(s): J96.01 - Acute respiratory failure with hypoxia Status: Acute (2) Community acquired pneumonia: Code(s): J18.9 - Pneumonia, unspecified organism Status: Acute (3) CHF (congestive heart failure): Code(s): I50.9 - Heart failure, unspecified Status: Acute (4) Anemia: Code(s): D64.9 - Anemia, unspecified Status: Acute (5) Asthma: Code(s): J45.909 - Unspecified asthma, uncomplicated Status: Acute (6) Cardiac disorder: Code(s): I51.9 - Heart disease, unspecified Status: Acute (7) Hypercholesterolemia: Code(s): E78.00 - Pure hypercholesterolemia, unspecified Status: Acute (8) Hypertension: Code(s): I10 - Essential (primary) hypertension Status: Acute Additional Plan # Acute hypoxic respiratory failure pneumonia versus congestive heart failure 20 mg of Lasix given in the ER. Started on broad-spectrum antibiotics as well for community-acquired pneumonia. BNP is elevated worsened from previous levels cardiology following possible congestive heart failure serial troponins negative he had she does have history of asthma as well and reports being wheezy last night. His there is high suspicion for bacterial pneumonia as well will avoid any IV steroid at this time. Continue to follow clinical course. Continue bronchodilators. Though she is already on apixaban will do CTA chest to rule out PE and further evaluate her lung pathology. Apixaban has been on hold for planned GI workup WBC count is still elevated will switch antibiotic from ceftriaxone to vancomycin and cefepime for broader coverage. MRSA nasal screen will be ordered BiPAP support for hypoxic respiratory failure not maintained on airvo Lasix IV x1 Repeat chest x-ray with diffuse lung disease consistent with pneumonia versus pulmonary edema similar to yesterday formal read pending CT chest is pending # Bilateral pneumonia rapid COVID is negative RT PCR negative. Ceftriaxone and azithromycin started losing count at 19,000 Vaccinated status # Anemia for which she supposed to get evaluation done by GI continue to monitor H&H no active signs of bleeding # History of atrial fibrillation # History of takotsubo stress cardiomyopathy April 2019 # History of asthma unlikely to be as months ablation wheezing on examination # Mitral valve regurgitation # Hypertension home medication # Hyperlipidemia home medication # DVT prophylaxis on apixaban at which will be continued Patient critically ill. If in distress or oxygenation not maintained needs to be mechanically ventilated Discussed with the patient patient is full code Subjective Date/time seen: 11/15/21 11:44 Interval history: For overnight need to be placed on a BiPAP of because of low oxygen saturation her RT PCR COVID came back negative. Her chest x-ray back from July last time when did was normal CT chest from November 2020 shows only mild emphysema Amiodarone has been stopped due to possibility amiodarone induced toxicity Looks like from notes Eliquis has been on hold for planned colonoscopy so possibility of PE is there however chest x-ray findings suggest acute lung injury Review of Systems Review of Systems: All systems reviewed & are unremarkable except as noted in HPI and below Exam Narrative: APPEARANCE: No acute distress, nontoxic, resting in bed EYES: EOMI HEENT: Normocephalic, atraumatic, OMM RESPIRATORY: Bilateral coarse breath sounds crackles at the base noted no respiratory distress occasional wheezes CARDIOVASCULAR: Regular rate and rhythm without murmurs rubs or gallops. ABDOMINAL: Soft, nontender, nondistended, no rebound or guarding MUSCULOSKELETAl: Moves all extremities. No clubbing, cyanosis trace edema bilateral lower extremities NEURO: Awake and alert. Following commands, speech normal, no focal deficits SKIN:: Warm, d
[2021-11-15] MEDS: FUROSEMIDE INJ 40 MG/4 ML VIAL IV PUSH (12:46)
--- NOTE | 2021-11-15 15:52 | PCRCNOTE ---
Window of time for administration has passed. See next scheduled administration.
[2021-11-15] MEDS: ONDANSETRON INJ 4 MG/2 ML VIAL IV PUSH ×2 (18:10→21:40)
[2021-11-15] MEDS: FLUTICASONE/SALMETEROL 115-21 MCG INHALER 1 PUFF 2 PUFF INHALATION (20:39)
[2021-11-15] MEDS: traMADol HCL (*CRX) 50 MG TABLET PO (21:33)
[2021-11-16] VITALS (25 sets, daily range): BP systolic 106–119; BP diastolic 45–70; PULSE 82–103; RESP 22–32; TEMP 36.3–36.8; O2SAT 91–100; BMI 25.4
[2021-11-16] MEDS: LEVALBUTEROL NEB 1.25 MG/3 ML 0.63 MG INHALATION ×3 (01:40→13:22)
[2021-11-16 05:32] LABS: Basophils Percent Auto 0.1 % (0.2-1.2); Hematocrit 26.8 % (37.0-47.0); Hemoglobin 8.2 g/dL (12.0-15.0); Immature Granulocyte Absolute 0.15 K/mm3 (0.00-0.031); Immature Granulocyte Percent A 0.7 % (0-0.5); Lymphocytes Absolute Auto 0.31 K/mm3 (0.9-3.2); Lymphocytes Percent Auto 1.4 % (18.3-44.2); Mean Corpuscular HGB Conc 30.6 g/dl (32-36); Mean Corpuscular Hemoglobin 26.5 pg (26-34); Mean Corpuscular Volume 86.7 fl (80-100); Mean Platelet Volume 9.5 fl (7.4-10.4); Monocytes Absolute Auto 1.1 K/mm3 (0.1-0.6); Monocytes Percent Auto 5.1 % (2.6-8.5); Neutrophils Absolute Auto 19.9 K/mm3 (1.3-6.7); Neutrophils Percent Auto 92.7 % (45.5-73.1); Platelet Count Result 485 k/mm3 (150-375); Red Blood Count 3.09 M/mm3 (4.2-5.4); White Blood Count 21.5 K/mm3 (4.5-10.0)
[2021-11-16 05:47] LABS: Alanine Aminotransferase 21 U/L (4-35); Albumin Level 3.1 g/dL (3.5-5.1); Alkaline Phosphatase 85 U/L (38-126); Anion Gap 5 mmol/L (8-16); Aspartate Amino Transferase 32 U/L (14-36); Bilirubin,Total 0.7 mg/dL (0.2-1.3); Blood Urea Nitrogen 19 mg/dL (7-17); Calcium 8.4 mg/dL (8.4-10.2); Carbon Dioxide 31 mmol/L (22-30); Chloride 95 mmol/L (98-107); Estimated CRCL calculation 29 ml/min; Estimated Glomerular Filt Rate 54; Glucose 154 mg/dL (65-110); Magnesium 1.7 mg/dL (1.6-2.3); Sodium 131 mmol/L (137-145)
[2021-11-16 06:36] LABS: Anisocytosis 2+ (NORMAL); Hypochromasia 2+ (NORMAL)
[2021-11-16] MEDS: FLUTICASONE/SALMETEROL 115-21 MCG INHALER 1 PUFF 2 PUFF INHALATION ×2 (08:13→20:43)
[2021-11-16] MEDS: POTASSIUM CHLORIDE 20 MEQ TABLET 40 MEQ PO (09:09)
[2021-11-16] MEDS: FLUTICASONE PROPIONATE 0.05% NA SPR 16 GM BTL (*BKC) 2 SPRAY NASAL (09:09)
[2021-11-16] MEDS: LIDOCAINE 5% PATCH 1 PATCH TRANSDERM (09:09)
[2021-11-16] MEDS: DULoxetine HCL 30 MG CAPSULE.DR PO (09:10)
[2021-11-16] MEDS: FUROSEMIDE INJ 40 MG/4 ML VIAL IV PUSH (09:10)
[2021-11-16] MEDS: PANTOPRAZOLE 40 MG TABLET PO ×2 (09:10→20:01)
[2021-11-16] MEDS: NORTRIPTYLINE HCL 10 MG CAPSULE PO (09:10)
[2021-11-16] MEDS: METOPROLOL SUCCINATE EXT REL 50 MG TABCR PO (09:10)
[2021-11-16] MEDS: APIXABAN 5 MG TABLET PO ×2 (09:10→20:01)
--- NOTE | 2021-11-16 09:44 | PM.PNCARD ---
Progress Note: A&P Additional Plan 76-year-old lady who has been reporting gradual shortness of breath for about 3-4 months. It has become severe with hypoxemia requiring high-flow oxygen now on a BiPAP device. Cardiac history as I mentioned in my note is significant for an episode of takotsubo stress cardiomyopathy in 2019 from which she completely recovered with normalization in her LV function. At the time of that event she also had an episode of atrial fibrillation and had been maintained on low-dose amiodarone by her physicians at [place]. Recent echocardiography has demonstrated persistent normal LV function and a mild amount of MR. Despite this she has progressed to significant hypoxemia and has bilateral lung disease that was not evident on a chest x-ray earlier this year. Await the results of the chest CT that apparently will be done this morning. At this time no other specific cardiac recommendations George Espitia MD [facility] Subjective Date/time seen: 11/16/21 09:44 Interval history: Cardiology follow-up for atrial fibrillation Date of service 11/16/2021: Review of Systems Constitutional: Constitutional: Reports no additional constitutional complaints Eyes: Eyes: Reports no additional eye complaints ENT: Reports system reviewed and no additional complaints, except as documented Cardiovascular: Cardiovascular: Reports as per HPI, Reports dyspnea and Reports dyspnea on exertion Respiratory: Respiratory: Reports as per HPI, Reports dyspnea and Reports dyspnea on exertion Gastrointestinal: Gastrointestinal: Reports no additional gastrointestinal complaints Musculoskeletal: Musculoskeletal: Reports no additional musculoskeletal complaints Integumentary/Breasts: Skin/Breast: Reports system reviewed and no additional complaints, except as docu Neurologic: Reports system reviewed and no additional complaints, except as documented Endocrine: Endocrine: Reports no additional endocrine complaints Hematologic/Lymphatic: Hematologic/Lymphatic: Reports no additional hematologic/lymphatic complaints Allergic/Immunologic: Allergic/Immunologic: Reports no additional allergic/immunologic complaints Exam Const: General: comfortable and no acute distress Other: Pleasant elderly lady with BiPAP in place no cardiovascular complaints HENMT: Mouth: Yes moist mucous membranes Eyes: Sclera: sclerae normal Pupils: Equal, round and reactive pupils present Neck: Neck: supple and no JVD Resp: Other: Coarse breath sounds throughout both lung connelly Cardio: Rate: regular rate Rhythm: regular rhythm Other: Difficult exam with loud breath sounds no obvious murmur or gallop GI: Auscultation: normal bowel sounds Skin: General skin exam: normal color Neuro: Cranial nerves: Yes Equal, round and reactive pupils present Cognition (Neuro): normal cognition Extrem: General: normal to inspection Objective Data Vital Signs Vital Signs: Vital Signs - 24 hr 11/15/21 10:08 11/15/21 10:32 11/15/21 12:00 Temperature 36.9 C Pulse Rate 94 89 Respiratory Rate 33 H 34 H Blood Pressure 108/56 L Pulse Oximetry 100 11/15/21 14:00 11/15/21 14:25 11/15/21 16:00 Temperature 36.2 C L Pulse Rate 90 88 Respiratory Rate 33 H 36 H Blood Pressure 122/64 Pulse Oximetry 99 11/15/21 17:20 11/15/21 18:00 11/15/21 20:00 Temperature 36.3 C L Pulse Rate 89 87 88 Respiratory Rate 32 H 32 H Blood Pressure 108/55 L Pulse Oximetry 90 95 11/15/21 20:40 11/15/21 20:50 11/15/21 22:00 Temperature Pulse Rate 88 88 91 Respiratory Rate 30 H 30 H Blood Pressure Pulse Oximetry 99 11/16/21 00:00 11/16/21 01:40 11/16/21 01:50 Temperature 36.4 C Pulse Rate 85 88 88 Respiratory Rate 32 H 30 H 30 H Blood Pressure 119/58 L Pulse Oximetry 100 96 11/16/21 02:00 11/16/21 03:46 11/16/21 04:00 Temperature 36.8 C Pulse Rate 89 88 95 Respiratory Rate 27 H Blood Pressure 112/70 Pulse Oxi
--- NOTE | 2021-11-16 11:01 | PM.PNCARD ---
Progress Note: A&P Assessment and Plan (1) CHF (congestive heart failure): Code(s): I50.9 - Heart failure, unspecified <JASMIN Zamora - Last Filed: 11/16/21 14:06> Status: Acute <JASMIN Zamora - Last Filed: 11/16/21 14:06> Assessment and Plan: History of takotsubo cardiomyopathy in 2019 with evidence of recovered LV systolic function by a recent echocardiogram in September of this year. Chest x-ray this morning did show evidence of pulmonary edema. She was given one dose of IV Lasix. No evidence of CHF on physical exam. <JASMIN Zamora - Last Filed: 11/16/21 14:06> (2) Acute respiratory failure with hypoxia: Code(s): J96.01 - Acute respiratory failure with hypoxia <JASMIN Zamora - Last Filed: 11/16/21 14:06> Status: Acute <JASMIN Zamora - Last Filed: 11/16/21 14:06> Assessment and Plan: She entered the hospital with complaints of worsening shortness of breath over the past few months. Chest CT performed yesterday showed diffuse lung disease consistent with pulmonary edema versus pneumonia and some small pleural effusions. She has been started on broad-spectrum antibiotics for community-acquired pneumonia. Currently on BiPAP, 70% FiO2. Pulmonology has been consulted. <JASMIN Zamora - Last Filed: 11/16/21 14:06> (3) Anemia: Code(s): D64.9 - Anemia, unspecified <JASMIN Zamora - Last Filed: 11/16/21 14:06> Status: Acute <JASMIN Zamora - Last Filed: 11/16/21 14:06> Assessment and Plan: Management per primary service. <JASMIN Zamora - Last Filed: 11/16/21 14:06> (4) Hypertension: Code(s): I10 - Essential (primary) hypertension <JASMIN Zamora - Last Filed: 11/16/21 14:06> Status: Acute <JASMIN Zamora - Last Filed: 11/16/21 14:06> Assessment and Plan: At goal <JASMIN Zamora - Last Filed: 11/16/21 14:06> Additional Plan Attending Addendum: I personally seen and examined this patient at bedside. I agree with the above documentation and plan of care as outlined. -the patient continues to complain of shortness of breath. She denies significant chest discomfort no palpitations. She remains in sinus rhythm. Amiodarone discontinued already. Additional pulmonary workup underway. Exam: NAD although increased work of breathing lying fairly flat in bed, A&Ox3, nonfocal neuro exam No JVD Lungs somewhat coarse breath sounds diffusely bilaterally Cardio RRR, S1/S2 grade 3/6 late peaking systolic murmur loudest at the left sternal border and toward the apex Abd soft, NT/ND, +BS Ext no edema, clubbing, or cyanosis Plan of Care: Appreciate pulmonary involvement and recommendations. Amiodarone discontinued. Possibility of amiodarone toxicity persists although unlikely cannot be excluded. We discussed the prospect of recurrence of atrial fibrillation off AV lenard blocking agents and antiarrhythmic therapy. She understands. Continue apixaban 5 mg q.12 hours. Continue Toprol XL 50 mg daily. Examination suggestive of more significant MR murmur than previously documented in cardiology notes and per echocardiogram September 2021 which indicated mild to moderate MR with mitral valve prolapse. Normal left atrial size, EF 62%. Although she is not clinically in significant decompensated heart failure may consider repeat 2D echocardiogram to confirm no significant change in valvular pathology and or pulmonary hypertension. However, she had similar symptoms prompting this evaluation as an outpatient in which this echocardiogram was obtained. Monitor WBC and hemoglobin. Negative eosinophils. She is hypokalemic, replete keep potassium around 4.0. Further recommendations to follow. <Toñito Farrell MD - Last Filed: 11/16/21 15:21> Subjective Date/time seen: 11/16/21 11:01 <JASMIN Zamora - Last Filed: 11/16
[2021-11-16 13:11] LABS: Influenza Control Positive
[2021-11-16] MEDS: amLODIPine BESYLATE 5 MG TABLET PO (14:43)
[2021-11-16] MEDS: lisinopriL 20 MG TABLET 40 MG PO (14:43)
--- NOTE | 2021-11-16 14:50 | PM.CNPUL ---
Assessment and Plan Assessment and plan (1) Acute respiratory failure with hypoxia: Code(s): J96.01 - Acute respiratory failure with hypoxia Status: Acute Assessment and Plan: Patient with a relatively normal high-resolution CT scan on 10/25/2021, severe asthma on advair and benralizumab (last 10/21/21) and now 8 days of worsening shortness of breath, leukocytosis and chest x-ray and CT scan with diffuse interstitial and alveolar infiltrates bilaterally. Etiology of acute respiratory failure with hypoxia includes pneumonia (bacterial, viral, or opportunistic), fluid overload, doubt inhalational injury, amiodarone toxicity, aspiration pneumonitis or pulmonary embolism. Patient is clinically responded to azithromycin, vancomycin and cefepime. Her COVID point of care antigen and RT PCR tests are negative. Influenza A and B swab were negative Blood cultures are negative. this time I would continue the current antibiotics. I will send an extended viral pathogen swab to [facility] looking for 23 different respiratory pathogens, I will send urine for Legionella and urine for streptococcal antigens. Patient has been on benralizumab but not chronic systemic steroids and opportunitic infections not common with anti-eosinophil treatment. At this time I agree with holding amiodarone. Patient has been given Lasix and at this time would diurese as tolerated by cardiac and renal systems. currently the patient is not wheezing and at this time I will continue her home dose of Advair 115-21 at 2 puffs q.12 hours and change her levalbuterol 0.63 nebulized Q 6 to p.r.n. I feel no need for systemic steroids at this time. Will follow with you History of Present Illness History of Present Illness Consult date: 11/16/21 Requesting physician: Channing Gr MD Reason for consult: hypoxemia and pneumonia Chief complaint: acute respiratory failure with hypoxia,community c Narrative: this is a new Pulmonary consultation for hypoxic respiratory failure with pneumonia. 76-year-old woman with a history of asthma maintained on Advair 115-21 at 2 puffs b.i.d. and benralizumab every 8 weeks, last injection 10/21/2021, last prednisone burst greater than 1 year ago, atrial fibrillation on apixaban and amiodarone, congestive heart failure who presents with shortness of breath and hypoxemic respiratory failure on 11/14/2020. Patient states that she developed shortness of breath starting on 11/07/2021 after being at her daughter's house and exposed to different allergens. patient denied fever, chills, rigors, chest pain, dry cough. With patient's usual asthma exacerbation she has a productive cough and wheezing. She had no wheezing with this episode. Patient took prednisone on 11/08 and 11/09. Patient shortness of breath continued and she presented to the emergency department on 11/14/2020 with a white blood cell count of 19.4, a BNP of 3240, troponins negative x3 a blood gas on 10 L non-rebreather of 7.45/33/65. patient is CT angiogram of the chest that showed diffuse bilateral ground-glass opacities in all lobes with small pleural effusions. OG D, and no pulmonary embolism. Patient had a point of care COVID test that was negative and her COVID RT PCR test was negative on 11/13. Patient was treated with ceftriaxone, azithromycin on 11/14/2020 And required BiPAP for hypoxemic respiratory failure. ceftriaxone was discontinued on 11/15/2021 and vancomycin and cefepime were started. 11/16/21 When I saw the patient today she said that she was improved and she was now 40% back to normal. The dry cough has resolved. She still had shortness of breath and was hypoxic requiring 15 L nasal cannula and 15 L non-rebreather mask. Patient tells me that she has been on amiodarone since 2018 with no recent changes in the dose. Patient states that in September of 2020 see she saw her manager of tax for shortness of breath and an echo was ordered. The patient tel
--- NOTE | 2021-11-16 15:18 | ECHO_ITS ---
Patient Info Name: Callie Renee Age: 76 years : 1945 Gender: Female Ht: 60 in Wt: 130 lbs BSA: 1.59 m2 HR: 91 bpm BP: 107 / 45 mmHg Heart Rhythm: Sinus Rhythm Technical Quality: Fair Exam Date: 11/16/2021 3:39 PM Exam Location: [facility] Card Pulmonary Patient Status: Inpatient Admit Date: 11/15/2021 Staff Ordering Physician: Toñito Farrell MD Printing Roller Handler: Nathalia Wan RDCS Attending Provider: Michael Yu DO Referring Physician: Jami MIMS; Exam Type: CA echo doppler color flow Study Info Indications - worsening systolic murmur, shortness of breath Complete two-dimensional, color flow and Doppler transthoracic echocardiogram is performed. Summary 1. Complete two-dimensional, color flow and Doppler transthoracic echocardiogram is performed. 2. Mild LV enlargement, normal wall thickness, normal LV systolic function, ejection fraction 60-65%. Normal RV size and systolic function. Moderate left atrial enlargement. Mitral valve leaflets mildly thickened, moderate mild regurgitation, mild mitral stenosis, mean gradient 5 mmHg. Mild aortic valve sclerosis, mild aortic stenosis. Mild TR, moderate pulmonary hypertension, RVSP 55 mmHg. Left Ventricle Left ventricular chamber dimension is mildly enlarged. Left ventricular systolic function is normal, estimated at 60-65%. There is no increased left ventricular wall thickness. Right Ventricle Right ventricular chamber dimension is normal. Right ventricular systolic function is normal. Left Atria Left atrial chamber dimension is moderately enlarged. Right Atria Right atrial chamber dimension is normal. Aortic Valve There is mild aortic valve sclerosis. There is mild aortic valve regurgitation. Pulmonic Valve The pulmonic valve is not well visualized. Mitral Valve The mitral valve has normal leaflets. There is mild mitral valve stenosis. There is mild to moderate mitral valve regurgitation. Tricuspid Valve The tricuspid valve leaflets are normal. There is mild tricuspid valve regurgitation. Moderate pulmonary hypertension, estimated pulmonary arterial systolic pressure is 55 mmHg. Pericardium/Pleural The pericardium appears normal. Inferior Vena Cava Normal inferior vena cava with >50% collapse upon inspiration consistent with normal right atrial pressure, 10 mmHg. Aorta The aortic root size at the sinus of Valsalva is normal. Left Ventricular Outflow Tract Name Value Normal LVOT Doppler LVOT Peak Gradient 4 mmHg LVOT Mean Gradient 2 mmHg LVOT VTI 18 cm LVOT VTI/AV VTI Ratio 0.6 Pulmonic Valve Name Value Normal RVOT Doppler RVOT Peak Gradient 2 mmHg PV Doppler PV Peak Gradient 4 mmHg Mitral Valve
--- NOTE | 2021-11-16 18:30 | PM.IMPN ---
Progress Note: A&P Assessment and Plan (1) Acute respiratory failure with hypoxia: Code(s): J96.01 - Acute respiratory failure with hypoxia Status: Acute (2) Community acquired pneumonia: Code(s): J18.9 - Pneumonia, unspecified organism Status: Acute (3) CHF (congestive heart failure): Code(s): I50.9 - Heart failure, unspecified Status: Acute (4) Anemia: Code(s): D64.9 - Anemia, unspecified Status: Acute (5) Asthma: Code(s): J45.909 - Unspecified asthma, uncomplicated Status: Acute (6) Cardiac disorder: Code(s): I51.9 - Heart disease, unspecified Status: Acute (7) Hypercholesterolemia: Code(s): E78.00 - Pure hypercholesterolemia, unspecified Status: Acute (8) Hypertension: Code(s): I10 - Essential (primary) hypertension Status: Acute Additional Plan # Acute hypoxic respiratory failure pneumonia versus congestive heart failure 20 mg of Lasix given in the ER. Started on broad-spectrum antibiotics as well for community-acquired pneumonia. BNP is elevated worsened from previous levels cardiology following possible congestive heart failure serial troponins negative he had she does have history of asthma as well and reports being wheezy last night. His there is high suspicion for bacterial pneumonia as well will avoid any IV steroid at this time. Continue to follow clinical course. Continue bronchodilators. Though she is already on apixaban will do CTA chest to rule out PE and further evaluate her lung pathology. Apixaban has been on hold for planned GI workup WBC count is still elevated will switch antibiotic from ceftriaxone to vancomycin and cefepime for broader coverage. MRSA nasal screen will be ordered BiPAP support for hypoxic respiratory failure not maintained on airvo Lasix IV x1 Repeat chest x-ray with diffuse lung disease consistent with pneumonia versus pulmonary edema similar to yesterday formal read pending CT chest with bilateral opacities no PE Pulmonary consulted and discussed with him Intermittent Lasix dosing will give does 1 again today # Bilateral pneumonia rapid COVID is negative RT PCR negative. Ceftriaxone and azithromycin started losing count at 19,000 Vaccinated status # Anemia for which she supposed to get evaluation done by GI continue to monitor H&H no active signs of bleeding # History of atrial fibrillation # History of takotsubo stress cardiomyopathy April 2019 # History of asthma unlikely to be as months ablation wheezing on examination # Mitral valve regurgitation # Hypertension home medication # Hyperlipidemia home medication # DVT prophylaxis on apixaban at which will be continued Patient critically ill. If in distress or oxygenation not maintained needs to be mechanically ventilated Discussed with the patient patient is full code Subjective Date/time seen: 11/16/21 18:30 Interval history: For overnight need to be placed on a BiPAP of because of low oxygen saturation her RT PCR COVID came back negative. Her chest x-ray back from July last time when did was normal CT chest from November 2020 shows only mild emphysema Amiodarone has been stopped due to possibility amiodarone induced toxicity Looks like from notes Eliquis has been on hold for planned colonoscopy so possibility of PE is there however chest x-ray findings suggest acute lung injury 11/16/2021 BiPAP has been turned off and placed on high-flow nasal cannula along with non-rebreather mask. She overall feels better than yesterday. Denies any chest pain still has cough remains afebrile Review of Systems Review of Systems: All systems reviewed & are unremarkable except as noted in HPI and below Exam Narrative: APPEARANCE: No acute distress, nontoxic, resting in bed EYES: EOMI HEENT: Normocephalic, atraumatic, OMM RESPIRATORY: Bilateral coarse breath sounds crackles at the base noted no respiratory distress occasional wheezes CARDIOV
[2021-11-16] MEDS: traMADol HCL (*CRX) 50 MG TABLET PO (18:39)
--- NOTE | 2021-11-16 18:41 | ECG_ITS ---
Measurements Intervals [place] Rate: 90 P: 77 IL: 212 QRS: 43 QRSD: 98 T: 67 QT: 376 QTc: 462 Interpretive Statements SINUS RHYTHM WITH FIRST DEGREE AV BLOCK CANNOT RULE OUT SEPTAL INFARCT, AGE INDETERMINATE ST ABNORMALITY IN LATERAL LEADS- CONSIDER ISCHEMIA BASELINE ARTIFACT- I, II, III, AVL, AVF, V4-V5 ABNORMAL ECG Electronically Signed On 11-17-2021 8:00:07 [employer] by Roosevelt Gaytan D.O.
[2021-11-16] MEDS: MORPHINE SULFATE (*CRX) 2 MG/ML INJ 1 MG IV PUSH (20:01)
[2021-11-16 20:09] LABS: Troponin I < 0.012 ng/mL (0.000-0.034)
[2021-11-16 20:20] LABS: Alveolar/Arterial O2 Gradient 592.5 mmHg; Base Excess ABG 2.8 mEq/l (+/-2.0); Carboxyhemoglobin 0.1 % THb (0-2.0); Fractional Inspired Oxygen 100 %; HCO3 ABG 26.6 mEq/l (22.0-26.0); Methemoglobin ABG 0.2 %THb (0-1.5); Oxygen Saturation ABG 96.7 % (95.0-100.0); PCO2 ABG 37.8 mmHg (35.0-45.0); PO2 ABG 82.7 mmHg (80.0-100.0); PO2 FiO2 Ratio Arterial Blood 0.83 %; Reduced Hemoglobin 4.7 %THb (0-5.0); Total Hemoglobin 11.2 g/dL (12.0-18.0); pH ABG 7.465 (7.350-7.450)
[2021-11-16 20:21] LABS: Device NON-INVASIVE VENT; Modified Allen's Test Pass; Non-Invasive Expiratory Pressure 8 CMH2O; Non-Invasive Inspiratory Pressure 16 CMH2O; Non-Invasive Vent Rate 12 /MIN; Site Drawn RIGHT RADIAL
[2021-11-16] MEDS: ALBUTEROL SULFATE NEB 2.5 MG/0.5 ML INH 5 MG INHALATION (20:34)
[2021-11-16] MEDS: ALBUTEROL SULFATE NEB 2.5 MG/0.5 ML INH 10 MG INHALATION (20:55)
[2021-11-16 23:05] LABS: Troponin I < 0.012 ng/mL (0.000-0.034)
[2021-11-17] VITALS (23 sets, daily range): BP systolic 97–115; BP diastolic 42–59; PULSE 75–95; RESP 20–29; TEMP 36.3–36.7; O2SAT 90–100
[2021-11-17] MEDS: traMADol HCL (*CRX) 50 MG TABLET PO (03:39)
[2021-11-17 04:53] LABS: Hematocrit 26.7 % (37.0-47.0); Hemoglobin 8.2 g/dL (12.0-15.0); Immature Granulocyte Absolute 0.16 K/mm3 (0.00-0.031); Immature Granulocyte Percent A 0.8 % (0-0.5); Lymphocytes Absolute Auto 0.37 K/mm3 (0.9-3.2); Lymphocytes Percent Auto 1.8 % (18.3-44.2); Mean Corpuscular HGB Conc 30.7 g/dl (32-36); Mean Corpuscular Hemoglobin 26.4 pg (26-34); Mean Corpuscular Volume 85.9 fl (80-100); Mean Platelet Volume 9.4 fl (7.4-10.4); Monocytes Absolute Auto 1.3 K/mm3 (0.1-0.6); Monocytes Percent Auto 6.4 % (2.6-8.5); Neutrophils Absolute Auto 18.5 K/mm3 (1.3-6.7); Platelet Count Result 529 k/mm3 (150-375); Red Blood Count 3.11 M/mm3 (4.2-5.4); White Blood Count 20.3 K/mm3 (4.5-10.0)
[2021-11-17 05:10] LABS: Alanine Aminotransferase 17 U/L (4-35); Albumin Level 3.1 g/dL (3.5-5.1); Alkaline Phosphatase 94 U/L (38-126); Anion Gap 6 mmol/L (8-16); Aspartate Amino Transferase 29 U/L (14-36); Bilirubin,Total 0.9 mg/dL (0.2-1.3); Blood Urea Nitrogen 24 mg/dL (7-17); Calcium 8.8 mg/dL (8.4-10.2); Carbon Dioxide 31 mmol/L (22-30); Chloride 96 mmol/L (98-107); Estimated CRCL calculation 33 ml/min; Estimated Glomerular Filt Rate 54; Glucose 103 mg/dL (65-110); Potassium 3.5 mmol/L (3.4-5.0); Sodium 133 mmol/L (137-145)
[2021-11-17 06:02] LABS: Anisocytosis 2+ (NORMAL); Hypochromasia 1+ (NORMAL); Platelet Estimate Increased (Adequate)
[2021-11-17] MEDS: FLUTICASONE/SALMETEROL 115-21 MCG INHALER 1 PUFF 2 PUFF INHALATION ×2 (10:12→20:29)
[2021-11-17] MEDS: METOPROLOL SUCCINATE EXT REL 50 MG TABCR PO (10:19)
[2021-11-17] MEDS: DULoxetine HCL 30 MG CAPSULE.DR PO (10:19)
[2021-11-17] MEDS: NORTRIPTYLINE HCL 10 MG CAPSULE PO (10:19)
[2021-11-17] MEDS: amLODIPine BESYLATE 5 MG TABLET PO (10:19)
[2021-11-17] MEDS: APIXABAN 5 MG TABLET PO ×2 (10:20→21:26)
[2021-11-17] MEDS: PANTOPRAZOLE 40 MG TABLET PO ×2 (10:20→21:26)
[2021-11-17] MEDS: FLUTICASONE PROPIONATE 0.05% NA SPR 16 GM BTL (*BKC) 2 SPRAY NASAL (10:20)
[2021-11-17] MEDS: lisinopriL 20 MG TABLET 40 MG PO (10:20)
[2021-11-17] MEDS: LIDOCAINE 5% PATCH 1 PATCH TRANSDERM (10:21)
[2021-11-17 10:44] LABS: Rheumatoid Factor 16.1 IU/ML (<12)
--- NOTE | 2021-11-17 11:00 | PM.PNPUL ---
Progress Note: A&P Assessment and Plan (1) Acute respiratory failure with hypoxia: Code(s): J96.01 - Acute respiratory failure with hypoxia Status: Acute Assessment and Plan: 10/16 Patient with a relatively normal high-resolution CT scan on 10/25/2021, severe asthma on advair and benralizumab (last 10/21/21) and now 8 days of worsening shortness of breath, leukocytosis and chest x-ray and CT scan with diffuse interstitial and alveolar infiltrates bilaterally. Etiology of acute respiratory failure with hypoxia includes pneumonia (bacterial, viral, or opportunistic), fluid overload, acute interstitial pneumonia (AIP), doubt inhalational injury, amiodarone toxicity, aspiration pneumonitis or pulmonary embolism. Patient is clinically responded to azithromycin, vancomycin and cefepime. Her COVID point of care antigen and RT PCR tests are negative. Influenza A and B swab were negative Blood cultures are negative. this time I would continue the current antibiotics. I will send an extended viral pathogen swab to [facility] looking for 23 different respiratory pathogens, I will send urine for Legionella and urine for streptococcal antigens. Patient has been on benralizumab but not chronic systemic steroids and opportunitic infections not common with anti-eosinophil treatment. At this time I agree with holding amiodarone. Patient has been given Lasix and at this time would diurese as tolerated by cardiac and renal systems. currently the patient is not wheezing and at this time I will continue her home dose of Advair 115-21 at 2 puffs q.12 hours and change her levalbuterol 0.63 nebulized Q 6 to p.r.n. I feel no need for systemic steroids at this time. 10/17 11/17 Patient remains hypoxic and required BiPAP last night for hypoxemia and required 90% FiO2. Currently patient is on BiPAP 29/06 was but was complaining that it was uncomfortable. I changed her to a noninvasive ventilator mode with AVAPS at a rate of 12, tidal volume 450, EPAP 8, minimal inspiratory pressure 9, maximal inspiratory pressure 25, inspiratory time 1.2, rise 1 which is are fastest and 90%. Her saturations were 94%. She is alert and oriented and communicative. She is afebrile with a white blood cell count of 20.3. Chest x-ray shows worsening bilateral interstitial infiltrates compared to 11/16/2021. Patient with continued hypoxemic respiratory failure with worsening of her interstitial infiltrates on her x-ray. Patient has received 72 hours of antibiotics with no benefit. I will send a urine histoplasmosis antigen. I will also send an KAILEY screen including 11 auto antibodies, and ANCA screen, a rheumatoid factor, anti CCP and hypersensitivity pneumonitis panel. Patient is approaching mechanical ventilation and at this time bronchoscopy would certainly require continued mechanical ventilation. I discussed this with the patient and she is agreeable to mechanical ventilation as a last resort but would like to hold off on bronchoscopy at this time. Will empirically trial her on Solu-Medrol 125 mg IV x1 then 60 mg IV Q 6. I discussed the case with the counter hand, who was aware of her tenuous situation Will follow with you Subjective Date/time seen: 11/17/21 11:00 Interval history: 10/16/22 this is a new Pulmonary consultation for hypoxic respiratory failure with pneumonia. 76-year-old woman with a history of asthma maintained on Advair 115-21 at 2 puffs b.i.d. and benralizumab every 8 weeks, last injection 10/21/2021, last prednisone burst greater than 1 year ago, atrial fibrillation on apixaban and amiodarone, congestive heart failure who presents with shortness of breath and hypoxemic respiratory failure on 11/14/2020. Patient states that she developed shortness of breath starting on 11/07/2021 after being at her daughter's house and exposed to different allergens. patient denied fever, chills, rigors, chest pain, dry cough. With patient's usual asthma ex
--- NOTE | 2021-11-17 11:23 | PM.PNCARD ---
Progress Note: A&P Assessment and Plan (1) CHF (congestive heart failure): Code(s): I50.9 - Heart failure, unspecified <JASMIN Zamora - Last Filed: 11/17/21 14:25> Status: Acute <JASMIN Zamora - Last Filed: 11/17/21 14:25> Assessment and Plan: History of takotsubo cardiomyopathy in 2019 with evidence of recovered LV systolic function by a recent echocardiogram in September of this year. Repeat echocardiogram showed normal LV function EF 60-65%, LAE, mild-moderate mitral valve regurgitation. No significant changes from previous echo. Recent imaging suggests possible pulmonary edema, but given the clinical picture infiltrates more consistent with pneumonia. No specific cardiac recommendations at this time. <JASMIN Zamora - Last Filed: 11/17/21 14:25> (2) Acute respiratory failure with hypoxia: Code(s): J96.01 - Acute respiratory failure with hypoxia <JASMIN Zamora - Last Filed: 11/17/21 14:25> Status: Acute <JASMIN Zamora - Last Filed: 11/17/21 14:25> Assessment and Plan: She entered the hospital with complaints of worsening shortness of breath over the past few months. Chest CT showed diffuse lung disease consistent with pulmonary edema versus pneumonia and some small pleural effusions. She has been started on broad-spectrum antibiotics for community-acquired pneumonia with no improvement of symptoms. Chest x-ray this morning showed worsening pulmonary infiltrates. She is now requiring high-flow oxygen and 90% FiO2, 60 liters/minute. Pulmonology is involved in her case, appreciate their input. <JASMIN Zamora - Last Filed: 11/17/21 14:25> (3) Anemia: Code(s): D64.9 - Anemia, unspecified <JASMIN Zamora - Last Filed: 11/17/21 14:25> Status: Acute <JASMIN Zamora - Last Filed: 11/17/21 14:25> Assessment and Plan: Management per primary service. <JASMIN Zamora - Last Filed: 11/17/21 14:25> (4) Hypertension: Code(s): I10 - Essential (primary) hypertension <Rowena SantillanJASMIN - Last Filed: 11/17/21 14:25> Status: Acute <Rowena Santillan JASMIN - Last Filed: 11/17/21 14:25> Assessment and Plan: At goal <Rowena GoldbergJASMIN quintero - Last Filed: 11/17/21 14:25> (5) Chest pain: Code(s): R07.9 - Chest pain, unspecified <Rowena SantillanJASMIN - Last Filed: 11/17/21 14:25> Status: Acute <Rowena SantillanJASMIN - Last Filed: 11/17/21 14:25> Assessment and Plan: Pt. complained of some chest pain last evening, EKG at that time with no acute ischemic changes, unchanged from previous EKG. Troponins drawn and were negative. Chest pain worse with deep breathing and seems to correlate with anxiety related to difficulty breathing. Likely not related to ACS. Asked RN to administer her prn alprazolam now for anxiety. <Rowena GoldbergJASMIN quintero - Last Filed: 11/17/21 14:25> Additional Plan Attending Addendum: I personally seen and examined this patient at bedside. I agree with the above documentation and plan of care as outlined. -unfortunately, patient continues to worsen and remains hypoxic with high FIO2 and BiPAP support. She is short of breath, fatigued, but tolerating thus far. She had an episode of chest pain last night for which repeat EKG did not reveal ischemic changes and troponin unremarkable. Repeat imaging reveals progression in diffuse bilateral interstitial infiltrates. She is maintaining sinus rhythm on telemetry. Exam: NAD but increased work of breathing on BiPAP, A&Ox3, nonfocal neuro exam pleasant and cooperative No JVD Lungs diffuse bilateral Velcro rales Cardio RRR, S1/S2, systolic murmur more difficult to appreciate today due to breath sounds Abd soft, NT/ND, +BS Ext no edema, clubbing, or cyanosis Plan of Care: Patient is critically ill. Clinical picture is not highly suggestiv
[2021-11-17 11:26] LABS: CRP 35.9 mg/dL (<1.0)
[2021-11-17] MEDS: ALPRAZolam (*CRX) 0.25 MG TABLET PO (12:33)
[2021-11-17] MEDS: methylPREDNISolone SOD SUCC 125 MG VIAL IV PUSH (12:33)
[2021-11-17] MEDS: ONDANSETRON INJ 4 MG/2 ML VIAL IV PUSH (12:33)
--- NOTE | 2021-11-17 14:34 | PM.IMPN ---
Progress Note: A&P Assessment and Plan (1) Acute respiratory failure with hypoxia: Code(s): J96.01 - Acute respiratory failure with hypoxia Status: Acute Assessment and Plan: Pneumonia versus congestive heart failure 20 mg of Lasix given in the ER Started on broad-spectrum antibiotics as well for community-acquired pneumonia BNP is elevated worsened from previous levels Cardiology following possible congestive heart failure Serial troponins negative Hx of asthma as well High suspicion for bacterial pneumonia as Will avoid any IV steroid at this time Continue to follow clinical course Continue bronchodilators Though she is already on apixaban CTA chest-->No pulmonary embolus; diffuse lung disease, consistent with pulmonary edema versus pneumonia; small pleural effusions WBC count is still elevated Ceftriaxone d/c'd Continue azithromycin, vancomycin and cefepime for broader coverage MRSA nasal screen will be ordered BiPAP support for hypoxic respiratory failure not maintained on airvo Lasix IV x1 Repeat chest x-ray with diffuse lung disease consistent with pneumonia versus pulmonary edema similar to yesterday formal read pending Pulmonary consulted Intermittent Lasix dosing will give does 1 again 11/16 CXR-->Extensive bilateral pulmonary infiltrates, mildly increased since 11/16/2021 Continue nebs (2) Community acquired pneumonia: Code(s): J18.9 - Pneumonia, unspecified organism Status: Acute Assessment and Plan: Bilateral pneumonia Rapid COVID is negative RT PCR negative WBC 20.3 today Vaccinated status Treatment as above (3) CHF (congestive heart failure): Code(s): I50.9 - Heart failure, unspecified Status: Acute Assessment and Plan: Treatment as above (4) Anemia: Code(s): D64.9 - Anemia, unspecified Status: Acute Assessment and Plan: To be evaluated by GI Hgb 8.2 today No active signs of bleeding Transfuse if <7 Monitor (5) Asthma: Code(s): J45.909 - Unspecified asthma, uncomplicated Status: Acute (6) Cardiac disorder: Code(s): I51.9 - Heart disease, unspecified Status: Acute (7) Hypercholesterolemia: Code(s): E78.00 - Pure hypercholesterolemia, unspecified Status: Acute (8) Hypertension: Code(s): I10 - Essential (primary) hypertension Status: Acute Additional Plan # Acute hypoxic respiratory failure pneumonia versus congestive heart failure 20 mg of Lasix given in the ER. Started on broad-spectrum antibiotics as well for community-acquired pneumonia. BNP is elevated worsened from previous levels cardiology following possible congestive heart failure serial troponins negative he had she does have history of asthma as well and reports being wheezy last night. His there is high suspicion for bacterial pneumonia as well will avoid any IV steroid at this time. Continue to follow clinical course. Continue bronchodilators. Though she is already on apixaban will do CTA chest to rule out PE and further evaluate her lung pathology. Apixaban has been on hold for planned GI workup WBC count is still elevated will switch antibiotic from ceftriaxone to vancomycin and cefepime for broader coverage. MRSA nasal screen will be ordered BiPAP support for hypoxic respiratory failure not maintained on airvo Lasix IV x1 Repeat chest x-ray with diffuse lung disease consistent with pneumonia versus pulmonary edema similar to yesterday formal read pending CT chest with bilateral opacities no PE Pulmonary consulted and discussed with him Intermittent Lasix dosing will give does 1 again today # Bilateral pneumonia rapid COVID is negative RT PCR negative. Ceftriaxone and azithromycin started losing count at 19,000 Vaccinated status # History of atrial fibrillation # History of takotsubo stress cardiomyopathy April 2019 # History of asthma unlikely # Mitral valve regurgitation # Hypertension home medication # Hyperlip
[2021-11-17] MEDS: FUROSEMIDE INJ 40 MG/4 ML VIAL 10 MG IV PUSH (16:09)
[2021-11-17] MEDS: methylPREDNISolone SOD SUCC 125 MG VIAL 60 MG IV PUSH (17:28)
[2021-11-18] VITALS (20 sets, daily range): BP systolic 98–121; BP diastolic 42–89; PULSE 72–95; RESP 20–28; TEMP 36–36.5; O2SAT 89–100
[2021-11-18] MEDS: methylPREDNISolone SOD SUCC 125 MG VIAL 60 MG IV PUSH ×5 (01:01→23:01)
[2021-11-18 07:13] LABS: Alanine Aminotransferase 21 U/L (4-35); Albumin Level 3.1 g/dL (3.5-5.1); Alkaline Phosphatase 96 U/L (38-126); Anion Gap 9 mmol/L (8-16); Aspartate Amino Transferase 38 U/L (14-36); Bilirubin,Total 0.8 mg/dL (0.2-1.3); Blood Urea Nitrogen 41 mg/dL (7-17); Calcium 9.3 mg/dL (8.4-10.2); Carbon Dioxide 31 mmol/L (22-30); Chloride 95 mmol/L (98-107); Creatine Kinase < 20 U/L (30-135); Estimated CRCL calculation 28 ml/min; Estimated Glomerular Filt Rate 43; Glucose 123 mg/dL (65-110); Potassium 3.5 mmol/L (3.4-5.0); Sodium 135 mmol/L (137-145)
[2021-11-18 07:16] LABS: Hematocrit 25.7 % (37.0-47.0); Hemoglobin 7.7 g/dL (12.0-15.0); Mean Corpuscular Hemoglobin 26.6 pg (26-34); Mean Corpuscular Volume 88.9 fl (80-100); Mean Platelet Volume 9.8 fl (7.4-10.4); Platelet Count Result 532 k/mm3 (150-375); Red Blood Count 2.89 M/mm3 (4.2-5.4); Red Cell Distribution Width 25.5 % (11.5-14.5); White Blood Count 16.9 K/mm3 (4.5-10.0)
[2021-11-18 07:18] LABS: NT Pro B Type Natriuretic Pept 3070 pg/mL (5-100)
[2021-11-18] MEDS: FLUTICASONE/SALMETEROL 115-21 MCG INHALER 1 PUFF 2 PUFF INHALATION ×2 (09:20→21:18)
--- NOTE | 2021-11-18 10:17 | PM.PNPUL ---
Progress Note: A&P Assessment and Plan (1) Acute respiratory failure with hypoxia: Code(s): J96.01 - Acute respiratory failure with hypoxia Status: Acute Assessment and Plan: 11/16 Patient with a relatively normal high-resolution CT scan on 10/25/2021, severe asthma on advair and benralizumab (last 10/21/21) and now 8 days of worsening shortness of breath, leukocytosis and chest x-ray and CT scan with diffuse interstitial and alveolar infiltrates bilaterally. Etiology of acute respiratory failure with hypoxia includes pneumonia (bacterial, viral, or opportunistic), fluid overload, acute interstitial pneumonia (AIP), doubt inhalational injury, amiodarone toxicity, aspiration pneumonitis or pulmonary embolism. Patient is clinically responded to azithromycin, vancomycin and cefepime. Her COVID point of care antigen and RT PCR tests are negative. Influenza A and B swab were negative Blood cultures are negative. this time I would continue the current antibiotics. I will send an extended viral pathogen swab to [facility] looking for 23 different respiratory pathogens, I will send urine for Legionella and urine for streptococcal antigens. Patient has been on benralizumab but not chronic systemic steroids and opportunitic infections not common with anti-eosinophil treatment. At this time I agree with holding amiodarone. Patient has been given Lasix and at this time would diurese as tolerated by cardiac and renal systems. currently the patient is not wheezing and at this time I will continue her home dose of Advair 115-21 at 2 puffs q.12 hours and change her levalbuterol 0.63 nebulized Q 6 to p.r.n. I feel no need for systemic steroids at this time. 11/17 Patient remains hypoxic and required BiPAP last night for hypoxemia and required 90% FiO2. Currently patient is on BiPAP 29/06 was but was complaining that it was uncomfortable. I changed her to a noninvasive ventilator mode with AVAPS at a rate of 12, tidal volume 450, EPAP 8, minimal inspiratory pressure 9, maximal inspiratory pressure 25, inspiratory time 1.2, rise 1 which is are fastest and 90%. Her saturations were 94%. She is alert and oriented and communicative. She is afebrile with a white blood cell count of 20.3. Chest x-ray shows worsening bilateral interstitial infiltrates compared to 11/16/2021. Patient with continued hypoxemic respiratory failure with worsening of her interstitial infiltrates on her x-ray. Patient has received 72 hours of antibiotics with no benefit. I will send a urine histoplasmosis antigen. I will also send an KAILEY screen including 11 auto antibodies, and ANCA screen, a rheumatoid factor, anti CCP and hypersensitivity pneumonitis panel. Patient is approaching mechanical ventilation and at this time bronchoscopy would certainly require continued mechanical ventilation. I discussed this with the patient and she is agreeable to mechanical ventilation as a last resort but would like to hold off on bronchoscopy at this time. Will empirically trial her on Solu-Medrol 125 mg IV x1 then 60 mg IV Q 6. I discussed the case with the water pumping station engineer, who was aware of her tenuous situation. 11/18 Patient is awake and alert on BiPAP with an AVAPS mode with a rate of 20, tidal volume 500, expiratory pressure 9, minimal inspiratory pressure 10, maximal inspiratory pressure 25, inspiratory time 1.2, rise of 1.0 which is are fastest with peak inspiratory pressure of 11 on 100% FiO2 with saturations 99%. She tells me she clinically feels about the same. She still has dyspnea on exertion with any activity in bed. She has no cough, no hemoptysis and minimal phlegm production. I changed her to a high-flow nasal cannula at 50 L and 92% FiO2 plus a 15 L non-rebreather mask and her saturations were 92% after 20 minutes. She is afebrile with a white count of 16.9. Her chest x-ray demonstrates diffuse interstitial alveolar infiltrates bilaterally in all lung connelly without change
[2021-11-18] MEDS: FLUTICASONE PROPIONATE 0.05% NA SPR 16 GM BTL (*BKC) 2 SPRAY NASAL (10:21)
[2021-11-18] MEDS: LIDOCAINE 5% PATCH 1 PATCH TRANSDERM (10:22)
[2021-11-18] MEDS: NORTRIPTYLINE HCL 10 MG CAPSULE PO (10:23)
[2021-11-18] MEDS: PANTOPRAZOLE 40 MG TABLET PO ×2 (10:23→21:21)
[2021-11-18] MEDS: METOPROLOL SUCCINATE EXT REL 50 MG TABCR PO (10:23)
[2021-11-18] MEDS: DULoxetine HCL 30 MG CAPSULE.DR PO (10:23)
[2021-11-18] MEDS: APIXABAN 5 MG TABLET PO ×2 (10:23→21:21)
[2021-11-18] MEDS: lisinopriL 20 MG TABLET 40 MG PO (10:23)
[2021-11-18] MEDS: amLODIPine BESYLATE 5 MG TABLET PO (10:23)
[2021-11-18] MEDS: ALPRAZolam (*CRX) 0.25 MG TABLET PO (10:30)
--- NOTE | 2021-11-18 11:43 | PM.PNCARD ---
Progress Note: A&P Additional Plan 76-year-old lady with: Severe respiratory distress with extensive infiltration of both lungs. This process as I mentioned in my notes has been gradual in nature we will going on for 3 or 4 months according to the review of her records. No other clinical evidence of congestive heart failure or recent to suggest that that is the problem. She does have some mitral regurgitation on echo but that is stable and clearly not the etiology of this severe respiratory distress. Has been diuresed empirically however no real improvement in response to this. She may be close to requiring intubation and ventilator support hopefully that can be avoided. George Espitia MD [facility] Subjective Date/time seen: Date of service: 11/18/21 11:43 Interval history: Cardiology follow-up for congestive heart failure Date of service 11/16/2021: Feeling better today however, she does complain of feeling ?winded. ? However, her breathing has significantly improved since admission. She denies any other cardiovascular complaints including chest pain, palpitations. Date of service 11/17/2021: Respiratory status is worse today unfortunately. She is now requiring high-flow oxygen 90%, at 60 L/min. She is having quite a bit of anxiety and is complaining of some chest discomfort with deep breathing and at times when she is having increased difficulty breathing. Date of service 11/18/2021: Respiratory status is holding its own but very tenuous requiring essentially maximum BiPAP support at this time no acute cardio vascular complaints. Pulmonology consultation notes reviewed and appreciated Exam Const: General: comfortable and no acute distress HENMT: Mouth: Yes moist mucous membranes Eyes: Sclera: sclerae normal Pupils: Equal, round and reactive pupils present Neck: Neck: supple and no JVD Resp: Auscultation: crackles bilateral Cardio: Rate: regular rate Rhythm: regular rhythm Heart sounds: Murmur heart sound present systolic at the apex GI: Auscultation: normal bowel sounds Skin: General skin exam: normal color Neuro: Cranial nerves: Yes Equal, round and reactive pupils present Cognition (Neuro): normal cognition Extrem: General: normal to inspection Objective Data Vital Signs Vital Signs: Vital Signs - 24 hr 11/17/21 12:00 11/17/21 13:19 11/17/21 14:00 Temperature 36.3 C L Pulse Rate 93 91 85 Respiratory Rate 23 H 28 H Blood Pressure 97/50 L Pulse Oximetry 91 93 11/17/21 16:00 11/17/21 17:11 11/17/21 18:00 Temperature 36.3 C L Pulse Rate 88 87 85 Respiratory Rate 20 28 H Blood Pressure 110/53 L Pulse Oximetry 91 95 11/17/21 20:00 11/17/21 20:33 11/17/21 20:34 Temperature 36.6 C Pulse Rate 83 85 Respiratory Rate 28 H 25 H Blood Pressure 100/48 L Pulse Oximetry 94 95 95 11/17/21 22:00 11/17/21 23:14 11/18/21 00:00 Temperature 36.6 C Pulse Rate 83 75 78 Respiratory Rate 22 H Blood Pressure 106/50 L Pulse Oximetry 100 99 11/18/21 02:00 11/18/21 02:31 11/18/21 04:00 Temperature 36.5 C Pulse Rate 79 81 72 Respiratory Rate 24 H 20 Blood Pressure 107/52 L Pulse Oximetry 100 100 11/18/21 06:00 11/18/21 08:00 11/18/21 08:45 Temperature 36.0 C L Pulse Rate 82 93 Respiratory Rate 23 H Blood Pressure 103/53 L Pulse Oximetry 100 92 11/18/21 09:23 11/18/21 09:55 11/18/21 10:00 Temperature Pulse Rate 95 Respiratory Rate Blood Pressure Pulse Oximetry 95 98 11/18/21 10:23 Temperature Pulse Rate 95 Respiratory Rate Blood Pressure Pulse Oximetry Intake/Output Intake/Output: Intake & Output 11/15/21 11/16/21 11/17/21 11/18/21 23:59 23:59 23:59 23:59 Intake Total 962 922 6028 150 Output Total 1300 1400 210 200 Balance -475 -450 930 -50 Meds/Results Medications: Active Medications Generic Name Dose Route Start Last Admin Trade Name Freq PRN Reason Stop Dose Admin Albuterol 5 mg
--- NOTE | 2021-11-18 13:55 | PM.IMPN ---
Progress Note: A&P Assessment and Plan (1) Acute respiratory failure with hypoxia: Code(s): J96.01 - Acute respiratory failure with hypoxia Status: Acute Assessment and Plan: Pneumonia versus congestive heart failure 20 mg of Lasix given in the ER Started on broad-spectrum antibiotics as well for community-acquired pneumonia BNP is elevated worsened from previous levels Cardiology following possible congestive heart failure Serial troponins negative Hx of asthma as well High suspicion for bacterial pneumonia as Will avoid any IV steroid at this time Continue to follow clinical course Continue bronchodilators Though she is already on apixaban CTA chest-->No pulmonary embolus; diffuse lung disease, consistent with pulmonary edema versus pneumonia; small pleural effusions WBC count is still elevated Ceftriaxone d/c'd Continue azithromycin, vancomycin and cefepime for broader coverage MRSA nasal screen will be ordered BiPAP support for hypoxic respiratory failure not maintained on airvo Lasix IV x1 Repeat chest x-ray with diffuse lung disease consistent with pneumonia versus pulmonary edema similar to yesterday formal read pending Pulmonary consulted Intermittent Lasix dosing will give does 1 again 11/16 CXR-->Extensive bilateral pulmonary infiltrates, mildly increased since 11/16/2021 Repeat CXR-->Persistent diffuse severe bilateral pulmonary infiltrates Continue nebs (2) Community acquired pneumonia: Code(s): J18.9 - Pneumonia, unspecified organism Status: Acute Assessment and Plan: Bilateral pneumonia Rapid COVID is negative RT PCR negative WBC 20.3-->16.9 today Vaccinated status Treatment as above (3) CHF (congestive heart failure): Code(s): I50.9 - Heart failure, unspecified Status: Acute Assessment and Plan: Cardiology following Treatment as above (4) Anemia: Code(s): D64.9 - Anemia, unspecified Status: Acute Assessment and Plan: To be evaluated by GI Hgb 8.2-->7.7 today No active signs of bleeding Transfuse if <7 Monitor (5) Asthma: Code(s): J45.909 - Unspecified asthma, uncomplicated Status: Acute (6) Cardiac disorder: Code(s): I51.9 - Heart disease, unspecified Status: Acute (7) Hypercholesterolemia: Code(s): E78.00 - Pure hypercholesterolemia, unspecified Status: Acute (8) Hypertension: Code(s): I10 - Essential (primary) hypertension Status: Acute Additional Plan # Acute hypoxic respiratory failure pneumonia versus congestive heart failure 20 mg of Lasix given in the ER. Started on broad-spectrum antibiotics as well for community-acquired pneumonia. BNP is elevated worsened from previous levels cardiology following possible congestive heart failure serial troponins negative he had she does have history of asthma as well and reports being wheezy last night. His there is high suspicion for bacterial pneumonia as well will avoid any IV steroid at this time. Continue to follow clinical course. Continue bronchodilators. Though she is already on apixaban will do CTA chest to rule out PE and further evaluate her lung pathology. Apixaban has been on hold for planned GI workup WBC count is still elevated will switch antibiotic from ceftriaxone to vancomycin and cefepime for broader coverage. MRSA nasal screen will be ordered BiPAP support for hypoxic respiratory failure not maintained on airvo Lasix IV x1 Repeat chest x-ray with diffuse lung disease consistent with pneumonia versus pulmonary edema similar to yesterday formal read pending CT chest with bilateral opacities no PE Pulmonary consulted and discussed with him Intermittent Lasix dosing will give does 1 again today # Bilateral pneumonia rapid COVID is negative RT PCR negative. Ceftriaxone and azithromycin started losing count at 19,000 Vaccinated status # History of atrial fibrillation # History of takotsubo stress cardiomyopathy April
[2021-11-18] MEDS: traMADol HCL (*CRX) 50 MG TABLET PO (15:53)
[2021-11-19] VITALS (15 sets, daily range): BP systolic 103–118; BP diastolic 53–83; PULSE 80–92; RESP 20–29; TEMP 35.7–37.3; O2SAT 87–99
[2021-11-19 05:18] LABS: Hematocrit 24.6 % (37.0-47.0); Hemoglobin 7.6 g/dL (12.0-15.0); Immature Platelet Fraction Pct 2.8 % (0.9-11.2); Mean Corpuscular HGB Conc 30.9 g/dl (32-36); Mean Corpuscular Hemoglobin 26.3 pg (26-34); Mean Corpuscular Volume 85.1 fl (80-100); Mean Platelet Volume 9.7 fl (7.4-10.4); Platelet Count Result 600 k/mm3 (150-375); Red Blood Count 2.89 M/mm3 (4.2-5.4); Red Cell Distribution Width 25.4 % (11.5-14.5); White Blood Count 24.8 K/mm3 (4.5-10.0)
[2021-11-19 05:30] LABS: Potassium 3.6 mmol/L (3.4-5.0)
[2021-11-19] MEDS: methylPREDNISolone SOD SUCC 125 MG VIAL 60 MG IV PUSH ×2 (06:00→13:27)
[2021-11-19 06:21] LABS: Anion Gap 9 mmol/L (8-16); Blood Urea Nitrogen 51 mg/dL (7-17); Calcium 9.4 mg/dL (8.4-10.2); Carbon Dioxide 30 mmol/L (22-30); Chloride 95 mmol/L (98-107); Estimated CRCL calculation 28 ml/min; Estimated Glomerular Filt Rate 43; Glucose 129 mg/dL (65-110); Sodium 134 mmol/L (137-145)
[2021-11-19] MEDS: traMADol HCL (*CRX) 50 MG TABLET PO (09:51)
[2021-11-19] MEDS: LIDOCAINE 5% PATCH 1 PATCH TRANSDERM (10:34)
[2021-11-19] MEDS: ALPRAZolam (*CRX) 0.25 MG TABLET PO (10:35)
--- NOTE | 2021-11-19 10:51 | PM.PNCARD ---
Progress Note: A&P Assessment and Plan (1) CHF (congestive heart failure): Code(s): I50.9 - Heart failure, unspecified <JASMIN Zamora - Last Filed: 11/19/21 11:07> Status: Acute <JASMIN Zamora - Last Filed: 11/19/21 11:07> Assessment and Plan: History of takotsubo cardiomyopathy in 2019 with evidence of recovered LV systolic function by a recent echocardiogram in September of this year. Repeat echocardiogram showed normal LV function EF 60-65%, LAE, mild-moderate mitral valve regurgitation. No significant changes from previous echo. Recent imaging suggests possible pulmonary edema, but given the clinical picture infiltrates more consistent with pneumonia. No specific cardiac recommendations at this time. <JASMIN Zamora - Last Filed: 11/19/21 11:07> (2) Acute respiratory failure with hypoxia: Code(s): J96.01 - Acute respiratory failure with hypoxia <JASMIN Zamora - Last Filed: 11/19/21 11:07> Status: Acute <JASMIN Zamora - Last Filed: 11/19/21 11:07> Assessment and Plan: She entered the hospital with complaints of worsening shortness of breath over the past few months. Chest CT showed diffuse lung disease consistent with pulmonary edema versus pneumonia and some small pleural effusions. She has been started on broad-spectrum antibiotics for community-acquired pneumonia with no improvement of symptoms. Now being treated with steroids. Chest x-ray yesterday continued to show worsening bilateral infiltrates. There is emerging concern for amiodarone induced pulmonary toxicity. She is now on BiPAP, AVAPS mode, FiO2 100% Pulmonology is involved in her case, attempting to transfer to higher level of care <JASMIN Zamora - Last Filed: 11/19/21 11:07> (3) Anemia: Code(s): D64.9 - Anemia, unspecified <JASMIN Zamora - Last Filed: 11/19/21 11:07> Status: Acute <JASMIN Zamora - Last Filed: 11/19/21 11:07> Assessment and Plan: Management per primary service. <JASMIN Zamora - Last Filed: 11/19/21 11:07> (4) Hypertension: Code(s): I10 - Essential (primary) hypertension <JASMIN Zamora - Last Filed: 11/19/21 11:07> Status: Acute <JASMIN Zamora - Last Filed: 11/19/21 11:07> Assessment and Plan: At goal <JASMIN Zamora - Last Filed: 11/19/21 11:07> (5) Chest pain: Code(s): R07.9 - Chest pain, unspecified <JASMIN Zamora - Last Filed: 11/19/21 11:07> Status: Acute <JASMIN Zamora - Last Filed: 11/19/21 11:07> Assessment and Plan: Pt. complained of some chest pain last evening, EKG at that time with no acute ischemic changes, unchanged from previous EKG. Troponins drawn and were negative. Chest pain worse with deep breathing and seems to correlate with anxiety related to difficulty breathing. Likely not related to ACS. <JASMIN Zamora - Last Filed: 11/19/21 11:07> Additional Plan 11/19/20 Attending Addendum: I personally seen and examined this patient at bedside. I agree with the above documentation and plan of care as outlined and have discussed the above with Rowena CASTELLANOS. -Pt unfortunately is not improving. She is tiring on maximal BiPAP settings and high FIO2 to maintain O2 sats in the low 90's. She is maintaining sinus rhythm on telemetry. -she states she is very tired. She expressed to me she did not think she was going to make it. I held her hand at bedside and consoled her while discussing her options and clinical status. She very well understands the severity of her illness. She agrees to intubation and other lifesaving measures at this time. Exam: Sitting upright in bed, NAD but appearing more fatigued and breathless with conversation, increased work of breathing on BiPAP, A&Ox3, nonfocal neuro exam No JVD Lungs diffuse bilateral Velcr
--- NOTE | 2021-11-19 11:13 | P.PNPL_ITS ---
Progress Note: A&P Assessment and Plan (1) Acute respiratory failure with hypoxia: Code(s): J96.01 - Acute respiratory failure with hypoxia Status: Acute Assessment and Plan: 11/16 Patient with a relatively normal high-resolution CT scan on 10/25/2021, severe asthma on advair and benralizumab (last 10/21/21) and now 8 days of worsening shortness of breath, leukocytosis and chest x-ray and CT scan with diffuse interstitial and alveolar infiltrates bilaterally. Etiology of acute respiratory failure with hypoxia includes pneumonia (bacterial, viral, or opportunistic), fluid overload, acute interstitial pneumonia (AIP), amiodarone toxicity doubt inhalational injury, aspiration pneumonitis or pulmonary embolism. Patient is clinically responded to azithromycin, vancomycin and cefepime. Her COVID point of care antigen and RT PCR tests are negative. Influenza A and B swab were negative Blood cultures are negative. this time I would continue the current antibiotics. I will send an extended viral pathogen swab to [facility] looking for 23 different respiratory pathogens, I will send urine for Legionella and urine for streptococcal antigens. Patient has been on benralizum ab but not chronic systemic steroids and opportunitic infections not common with anti-eosinophil treatment. At this time I agree with holding amiodarone. Patient has been given Lasix and at this time would diurese as tolerated by cardiac and renal systems. currently the patient is not wheezing and at this time I will continue her home dose of Advair 115-21 at 2 puffs q.12 hours and change her levalbuterol 0.63 nebulized Q 6 to p.r.n. I feel no need for systemic steroids at this time. 11/17 Patient remains hypoxic and required BiPAP last night for hypoxemia and required 90% FiO2. Currently patient is on BiPAP 29/06 was but was complaining that it was uncomfortable. I changed her to a noninvasive ventilator mode with AVAPS at a rate of 12, tidal volume 450, EPAP 8, minimal inspiratory pressure 9, maximal inspiratory pressure 25, inspiratory time 1.2, rise 1 which is are fastest and 90%. Her saturations were 94%. She is alert and oriented and communicative. She is afebrile with a white blood cell count of 20.3. Chest x-ray shows worsening bilateral interstitial infiltrates compared to 11/16/2021. Patient with continued hypoxemic respiratory failure with worsening of her interstitial infiltrates on her x-ray. Patient has received 72 hours of antibiotics with no benefit. I will send a urine histoplasmosis antigen. I will also send an KAILEY screen including 11 auto antibodies, and ANCA screen, a rheumatoid factor, anti CCP and hypersensitivity pneumonitis panel. Patient is approaching mechanical ventilation and at this time bronchoscopy would certainly require continued mechanical ventilation. I discussed this with the patient and she is agreeable to mechanical ventilation as a last resort but would like to hold off on bronchoscopy at this time. Will empirically trial her on Solu- Medrol 125 mg IV x1 then 60 mg IV Q 6. I discussed the case with the rehabilitation coordinator, who was aware of her tenuous situation. 11/18 Patient is awake and alert on BiPAP with an AVAPS mode with a rate of 20, tidal volume 500, expiratory pressure 9, minimal inspiratory pressure 10, maximal inspiratory pressure 25, inspiratory time 1.2, rise of 1.0 which is are fastest with peak inspiratory pressure of 11 on 100% FiO2 with saturations 99%. She tells me she clinically feels about the same. She still has dyspnea on exertion with any activity in bed. She has no cough, no hemoptysis and minimal phlegm production. I changed her to a high-flow nasal cannula at 50 L and 92% FiO2 plus a 15 L non-rebreather mask and h
[2021-11-19] MEDS: LIDOCAINE HCL 1% PF INJ 5 ML VIAL INFILTRATE (11:25)
--- NOTE | 2021-11-19 13:22 | WPDPROCEDUR ---
Procedures Intubation Intubation Date: 11/19/21 Intubation Time: 12:30 Consent: Intubation was discussed with patient and her family by Dr. Sibley with pulmonary who consulted me for the procedure. I spoke to patient and she was aware that she was getting intubation for respiratory failure and transferred. I again confirmed and explained of the procedure and she verbalized understanding and agreed to proceed. A pre-procedural Time-Out was completed immediately before starting the procedure and confirmed: Patient Identification, Site, Procedure, Patient Position and the Availability of Requisite Equipment: Yes Sedative: etomidate Mg given: 20 Paralytic: succinylcholine Mg given: 100 Laryngoscope: fiber optic video scope Assist device used: fiber optic device ET tube size: 8 Tube secured depth (cm): 24 Tube secured location: lips Tube placement confirmation: visualized tube passing through cords, equal breath sounds bilaterally, no breath sounds over epigastrium and confirmation by capnometry Patient tolerated procedure: other Intubation complications: difficult intubation and hypoxia Additional comments: Patient was a difficult intubation. I noticed some subcu air in her neck prior to procedure. Patient has been on BiPAP for 3 days and was on 100% FiO2. Her sats were 89-90%. Patient was given Versed and we started bag ventilating the patient for pre oxygenation. Her oxygen saturations dropped despite bagging. There was increase in subcu air in her neck. I attempted to intubate patient with glide scope but I was unable to advance ET tube which was getting stuck somewhere in her oral cavity and going towards lateral side despite multiple multiple manipulations. I made an attempt with MAC 4 laryngoscope but was unable to clearly visualize vocal cords. Patient was esophageal intubated. Once confirmed ET tube was removed. I requested nurse to call anesthesia for support. Patient was bag ventilated again. I made another attempt with glide scope and this time I bent the stylet more acutely and this allowed me to point the ETT correctly to worse the vocal cords and I was able to intubate the patient. Position was confirmed with capnometer and bilateral breath sounds. There were small amount of bloody secretions oral cavity which were suctioned out. RN and me both were unable to place the OG tube. Patient's saturation improved with bag ventilation and patient was tried transferred to ventilator. X-ray was reviewed an ET tube was withdrawn by 2 cm
[2021-11-19] MEDS: FENTANYL 2,500MCG/NS250ML(*CRX 2,500 MCG/250 ML BAG 10 MCG IV CONT (13:28)
[2021-11-19] MEDS: RAPID SEQUENCE INTUBATION KIT 1 EACH (13:30)
[2021-11-19] MEDS: MIDAZOLAM 100MG/NS 100ML(*CRX) 100 MG/100 ML BAG IV CONT (13:30)
--- NOTE | 2021-11-19 13:30 | PM.EVENT ---
Event Note Event Note Event Note: 76-year-old female who was being managed at IMU for acute respiratory failure and had been on BiPAP for last 3 days and her saturation was borderline. Patient was going to be transferred to tertiary hospital. They requested patient to be intubated prior to transfer. Dr. Sibley with pulmonary spoke to patient and patient's family and discussed intubation and mechanical ventilation. Patient and family agreed to proceed and I was consulted for procedure. I reviewed patient's labs and chart including allergies and renal function briefly. I spoke to patient and she was aware that she was getting intubation for respiratory failure and transferred. I again confirmed and explained of the procedure and she verbalized understanding and agreed to proceed. Patient was a difficult intubation. I noticed some subcu air in her neck prior to procedure. Patient has been on BiPAP for 3 days and was on 100% FiO2. Her sats were 89-90%. Patient was given Versed and we started bag ventilating the patient for pre oxygenation. Her oxygen saturations dropped despite bagging. There was increase in subcu air in her neck. I attempted to intubate patient with glide scope but I was unable to advance ET tube which was getting stuck somewhere in her oral cavity and going towards lateral side despite multiple multiple manipulations. I made an attempt with MAC 4 laryngoscope but was unable to clearly visualize vocal cords. Patient was esophageal intubated. Once confirmed ET tube was removed. I requested nurse to call anesthesia for support. Patient was bag ventilated again. I made another attempt with glide scope and this time I bent the stylet more acutely and this allowed me to point the ETT correctly to worse the vocal cords and I was able to intubate the patient. Position was confirmed with capnometer and bilateral breath sounds. There were small amount of bloody secretions oral cavity which were suctioned out. RN and me both were unable to place the OG tube. Patient's saturation improved with bag ventilation and patient was tried transferred to ventilator. X-ray was reviewed an ET tube was withdrawn by 2 cm. Patient was started on Versed and fentanyl infusions for sedation. I reviewed ventilator settings and discussed with respiratory therapist Once ET tube was readjusted her saturation again dropped. Patient was again bag ventilated with a PEEP valve. Patient continued to have coughing reflex which was leading to desaturation. I gave patient 50 mg of rocuronium. Patient's blood pressure also dropped to sedation and positive pressure ventilation. Patient is being given 1 L IV fluid bolus and may need vasopressors. ABGs is ordered and pending. Once ABG results of back and blood pressure has stabilized we will plan to transfer patient Total Critical Care Time - 35 minutes except separately billed procedures Due to a high probability of clinically significant, life threatening deterioration, the patient required my highest level of preparedness to intervene emergently and I personally spent this critical care time directly and personally managing the patient. This critical care time included obtaining a history; examining the patient; pulse oximetry; ordering and review of studies; arranging urgent treatment with development of a management plan; evaluation of patient's response to treatment; frequent reassessment; and discussions with other providers. It was exclusive of separately billable procedures and treating other patients and teaching time. Please see Assessment and Plan section and the rest of the note for further information on patient assessment and treatment
[2021-11-19] MEDS: MIDAZOLAM HCL (*CRX) 2 MG/2 ML VIAL (13:31)
[2021-11-19] MEDS: CENTRAL LINE FLUSH 10 ML IV PUSH (13:31)
[2021-11-19 13:51] LABS: Alveolar/Arterial O2 Gradient 473.5 mmHg; Base Excess ABG 1.8 mEq/l (+/-2.0); Fractional Inspired Oxygen 100 %; HCO3 ABG 28.4 mEq/l (22.0-26.0); Oxygen Content ABG 11.5 %vol (16.0-22.0); Oxygen Saturation ABG 99.1 % (95.0-100.0); Oxyhemoglobin 98.1 % THb (90.0-100.0); PCO2 ABG 56.7 mmHg (35.0-45.0); PO2 ABG 182.8 mmHg (80.0-100.0); PO2 FiO2 Ratio Arterial Blood 1.83 %; pH ABG 7.317 (7.350-7.450)
[2021-11-19 13:52] LABS: Device VENTILATOR; Site Drawn RIGHT RADIAL
[2021-11-19 13:54] LABS: Arterial Blood Gas Vent Mode CMV; Arterial Blood Gas Ventilator rate 24 /MIN
[2021-11-19 13:55] LABS: Arterial Blood Gas PEEP 10 cmH2O; Arterial Blood Gas Tidal Volume 360 ml
--- NOTE | 2021-11-19 14:17 | PM.TDS ---
Transfer Discharge Sum: Prov Provider Date of admission: 11/15/21 10:57 Primary care physician: PHYSICIAN NOT ON STAFF Admitting clinician: Tenzin Yu DO Consults: 11/14/21 Consult to Physician Routine Comment: Consulting Provider: George Espitia Reason for consultation: chf Has provider been notified: Yes 11/16/21 07:58 Consult to Physician Routine Comment: gave information to dr. sibley for consult Consulting Provider: George Sibley call center coordinator/MD group to consult: pulmonary Reason for consultation: hypoxic resp failure, pneumoina vs pulmonary edema Has provider been notified: Yes 11/19/21 13:36 Consult to Physician Routine Comment: Consulting Provider: Philippe Watson Reason for consultation: respiratory failure Has provider been notified: Yes DS: Admitting Diagnosis Discharge Date 11/19/2021 Admitting Diagnosis Acute respiratory failure with hypoxia DS: Discharge Diagnosis Discharge Diagnosis (1) Acute respiratory failure with hypoxia: Code(s): J96.01 - Acute respiratory failure with hypoxia Status: Acute Assessment and Plan: Pneumonia versus congestive heart failure 20 mg of Lasix given in the ER Started on broad-spectrum antibiotics as well for community-acquired pneumonia BNP is elevated worsened from previous levels Cardiology consulted for possible congestive heart failure Serial troponins negative Hx of asthma as well High suspicion for bacterial pneumonia as Will avoid any IV steroid at this time Continue to follow clinical course Continue bronchodilators Though she is already on apixaban CTA chest-->No pulmonary embolus; diffuse lung disease, consistent with pulmonary edema versus pneumonia; small pleural effusions WBC count is still elevated Ceftriaxone d/c'd Continue azithromycin, vancomycin and cefepime for broader coverage MRSA nasal screen will be ordered BiPAP support for hypoxic respiratory failure not maintained on airvo Lasix IV x1 Repeat chest x-ray with diffuse lung disease consistent with pneumonia versus pulmonary edema similar to yesterday formal read pending Pulmonary consulted Intermittent Lasix dosing will give does 1 again 11/16 CXR(11/17)-->Extensive bilateral pulmonary infiltrates, mildly increased since 11/16/2021 Repeat CXR(11/18)-->Persistent diffuse severe bilateral pulmonary infiltrates Continue nebs (2) Community acquired pneumonia: Code(s): J18.9 - Pneumonia, unspecified organism Status: Acute Assessment and Plan: Bilateral pneumonia Rapid COVID is negative RT PCR negative WBC 20.3-->16.9 today Vaccinated status Treatment as above (3) CHF (congestive heart failure): Code(s): I50.9 - Heart failure, unspecified Status: Acute Assessment and Plan: Cardiology following, their assistance is appreciated Hx of taotsubo cardiomyopathy in 2019 ECHO-->EF 60-65%, mild to mod MV regurg, no significant change 1/3 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 (4) Anemia: Code(s): D64.9 - Anemia, unspecified Status: Acute Assessment and Plan: To be evaluated by GI Hgb 8.2-->7.7-->7.6 today No active signs of bleeding Transfuse if <7 Monitor (5) Asthma: Code(s): J45.909 - Unspecified asthma, uncomplicated Status: Acute (6) Cardiac disorder: Code(s): I51.9 - Heart disease, unspecified Status: Acute (7) Hypercholesterolemia: Code(s): E78.00 - Pure hypercholesterolemia, unspecified Status: Acute (8) Hypertension: Code(s): I10 - Essential (primary) hypertension Status: Acute Transfer Discharge Sum: Med Medications Active and Home Medications: Home Medications albuterol sulfate 2 puff INHALATION QID PRN 11/03/21 [History Confirmed 11/14/21] alprazolam 0.25 mg PO DAILY PRN 11/03/21 [History Confirmed 11/14/21] amiodarone 25 mg PO DAILY 11/03/21 [History Confirmed 11/14/21] apixaban [Eliquis] 5 mg PO BID 11/03/21 [Histo
--- NOTE | 2021-11-19 15:15 | PC.NURSE ---
Pt transferred to [facility] in [place], [place] room 248-ICU, via [facility]. Fentanyl and Versed sent with patient for sedation. Report called to ELZBIETA De Leon @ [phone]. Belongings given to family at time of transfer. Family given contact information to accepting hospital.
[2021-11-20 12:58] LABS: Pneumococcal Antigen Urine Not Detected (Not Detected)
[2021-11-20 21:08] LABS: Legionella pneumophila Ag Ur Not Detected (Not Detected)
[2021-11-20 21:42] LABS: ANA Cascade Screen Negative (Negative)
[2021-11-20 22:11] LABS: Anti Cyclic Citrullinated Pept <16 Units (<20)
[2021-11-21 13:05] LABS: CMV DNA Quant PCR IU/mL Not Detected; Cytomegalovirus DNA Quant PCR Not Detected log IU/mL; Cytomegalovirus DNA Source Serum
[2021-11-23 12:51] LABS: NIL 0.01 IU/mL; Quantiferon TB Plus, 1T INDETERMINATE (NEGATIVE)
[2021-11-23 22:09] LABS: ANCA Screen Negative (Negative)
[2021-11-24 15:06] LABS: Mycoplasma IgM Antibody Titer 50 U/mL (<770)
== END 2021-11-19 14:40 | disposition short-term general hospital (02) | DRG 208 ==
LOC: ANHED 07:09 → ANHIMU 12:12
PROVIDERS: Internal Medicine; Internal Medicine Cardiovascular Disease; Internal Medicine Pulmonary Disease; Admitting Provider Student in an Organized Health Care Education/Training Program; Emergency Provider Emergency Medicine; Visit Provider Nurse Practitioner Adult Health
DX: J18.9 Pneumonia, unspecified organism (principal); J96.01 Acute respiratory failure with hypoxia; Z20.822 Contact with and (suspected) exposure to COVID-19; D64.9 Anemia, unspecified; J45.909 Unspecified asthma, uncomplicated; I50.9 Heart failure, unspecified; M19.90 Unspecified osteoarthritis, unspecified site; I11.0 Hypertensive heart disease with heart failure; N28.9 Disorder of kidney and ureter, unspecified; M41.9 Scoliosis, unspecified; E78.00 Pure hypercholesterolemia, unspecified; I34.0 Nonrheumatic mitral (valve) insufficiency; J15.9 Unspecified bacterial pneumonia; I48.91 Unspecified atrial fibrillation; Z90.49 Acquired absence of other specified parts of digestive tract; Z90.710 Acquired absence of both cervix and uterus; Z87.891 Personal history of nicotine dependence
CPT/HCPCS: 36415; 36569; 36600; 71045; 71275; 80048; 80053; 80202; 82375; 82550; 82805; 83050; 83605; 83735; 83880; 84145; 84484; 85025; 85027; 85055; 85610; 85730; 86036; 86038; 86140; 86200; 86331; 86430; 86480; 86606; 86609; 86738; 87040; 87081; 87385; 87426; 87449; 87486; 87497; 87581; 87633; 87804; 87899; 93005; 93306; 94002; 94003; 94640; 96365; 96366; 96367; 96375; 99285; A9270; C1751; C9803; G0378; J0131; J0330; J0456; J0692; J0696; J1940; J2250; J2270; J2405; J2930; J3010; J3370; J7030; Q9967; U0003; U0005